=== PATIENT | female | born 1960 | race American Indian/Alaskan Native ===

== ENCOUNTER 2017-12-01 19:25 | Emergency (ER) | payer MEDICARE, MEDICAID ==
[2017-12-01 20:09] VITALS: BP 126/72
--- NOTE | 2017-12-01 20:57 | EDM.PDOC ---
ED HPI GENERAL MEDICAL PROBLEM - General Chief Complaint: General Stated Complaint: YEAST INFECTION Time Seen by Provider: 12/01/17 20:10 Source of Information: Reports: Patient History Limitations: Reports: No Limitations - History of Present Illness INITIAL COMMENTS - FREE TEXT/NARRATIVE: Vaginal discharge requests screening for yeast infection. Denies any fever chills, or pelvic pain. Onset: Gradual Duration: Day(s): Location: Reports: Other Severity: Mild Improves with: Reports: None Worsens with: Reports: None Associated Symptoms: Reports: No Other Symptoms denies pain Pain Score (Numeric/FACES): 0 - Related Data Allergies Allergy/AdvReac Type Severity Reaction Status Date / Time acyclovir [From Zovirax] Allergy Hives Verified 12/21/15 22:22 acyclovir sodium Allergy Hives Verified 12/21/15 22:22 [From Zovirax] amoxicillin [Amoxicillin] Allergy Hives Verified 12/21/15 22:22 Home Meds: Home Meds Pregabalin [Lyrica] 300 mg PO TID 09/04/13 [History] metFORMIN [Glucophage] 500 mg PO DAILY 09/04/13 [History] traMADol [Ultram] 50 mg PO Q6H PRN 05/16/16 [History] Past Medical History HEENT History: Reports: Impaired Vision Other HEENT History: tooth extractions, broken teeth Cardiovascular History: Reports: Hypertension Respiratory History: Reports: COPD, Pneumonia, Recurrent 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: Musculoskeletal History: Reports: Fibromyalgia, Osteoarthritis, RA Neurological History: Reports: Migraines Psychiatric History: Reports: Depression Endocrine/Metabolic History: Reports: Diabetes, Type II Hematologic History: Reports: Other (See Below) - Infectious Disease History Infectious Disease History: Reports: Chicken Pox, Shingles - Past Surgical History HEENT Surgical History: Reports: Adenoidectomy, Tonsillectomy Social & Family History - Tobacco Use Smoking Status *Q: Never Smoker Years of Tobacco use: 35 Packs/Tins Daily: 0.5 Second Hand Smoke Exposure: Yes - Caffeine Use Caffeine Use: Reports: Coffee, Soda, Tea - Alcohol Use Days Per Week of Alcohol Use: 0 - Recreational Drug Use Recreational Drug Use: No - Living Situation & Occupation Living situation: Reports: Single Occupation: Disabled ED ROS GENERAL - Review of Systems Review Of Systems: See Below Constitutional: Reports: No Symptoms (She's having the back pain) GI/Abdominal: Reports: No Symptoms : Reports: Discharge ED EXAM, GENERAL - Physical Exam Exam: See Below Exam Limited By: No Limitations General Appearance: Alert, WD/WN, No Apparent Distress Nose: Normal Inspection Throat/Mouth: Normal Inspection Head: Atraumatic, Normocephalic Neck: Normal Inspection, Supple, Non-Tender Respiratory/Chest: Lungs Clear, Normal Breath Sounds, No Accessory Muscle Use Cardiovascular: Regular Rate, Rhythm, No Murmur GI/Abdominal: Normal Bowel Sounds, Soft, Non-Tender, No Distention (Female) Exam: Deferred Psychiatric: Normal Affect, Normal Mood Skin Exam: Warm Lymphatic: No Adenopathy Course - Vital Signs Last Recorded V/S: Last Vital Signs Temp 36.2 C 12/01/17 20:06 Pulse 95 12/01/17 20:06 Resp 17 12/01/17 20:06 BP 126/72 12/01/17 20:06 Pulse Ox 98 12/01/17 20:06 - Orders/Labs/Meds Orders: Wet prep positive clue cells positive bacteria positive yeast We'll treat with Bactrim vaginosis with metronidazole 500 mg by mouth twice a day 7 days and Diflucan 150 mg by mouth 1 Advised to follow-up with primary care for recheck Departure - Departure Time of Disposition: 21:47 Disposition: Home, Self-Care 01 Condition: Good Clinical Impression: BV (bacterial vaginosis), Yeast vaginitis - Discharge Information Instructions: Vaginal Yeast Infection, Adult, Bacterial Vaginosis, [id number] Referrals: PCP,None [Primary Care Provider] - Forms: ED Department Discharge Care Plan Goals: Yeast vaginitis -Diflucan 150 mg by mouth once -Drink plenty of fluids next 3 days Return to clinic or ER if not improved her symptoms worsen Bacterial vaginosis -Start metronidazole 500 mg by mouth twice a day 7 days -Drink plenty of fluids next 3 days return to clinic or ER if not improved her symptoms worsen - Problem List & Annotations (1) Yeast infection SNOMED Code(s): 6822410 Code(s): B37.9 - CANDIDIASIS, UNSPECIFIED Status: Acute Priority: Medium Current Visit: Yes (2) Yeast vaginitis SNOMED Code(s): 77502890 Code(s): B37.3 - CANDIDIASIS OF VULVA AND VAGINA Status: Acute Priority: Medium Current Visit: Yes - Problem List Review Problem List Initiated/Reviewed/Updated: Yes - Assessment/Plan Plan: Otitis media -amoxicillin 250mg/5 mL is give 10 ML's by mouth twice a day 7 days -Ibuprofen 5 mL to 7.5 mL is every 6-8 hours as needed for pain -Results in start meds tonight -follow-up with primary care provider for recheck in 10 days Return to clinic, urgent care, ER if has increased pain, fever, chills, nausea, vomiting, rash or not improved. Excessive ear wax -Prescription written for Debrox ear drops as directed Follow-up with primary care provider for recheck 0
== END 2017-12-01 21:50 | disposition home or self-care (01) ==
LOC: JP.ED 19:25
DX: N76.0 Acute vaginitis (principal); B37.3 Candidiasis of vulva and vagina; I10 Essential (primary) hypertension; E11.9 Type 2 diabetes mellitus without complications; Z88.1 Allergy status to other antibiotic agents; Z88.8 Allergy status to other drugs, medicaments and biological substances; Z79.84 Long term (current) use of oral hypoglycemic drugs
CPT/HCPCS: 87210; 99283; 99284

== ENCOUNTER 2019-08-21 18:48 | Emergency (ER) | payer MEDICARE, MEDICAID ==
--- NOTE | 2019-08-21 21:00 | EDM.PDOC ---
ED HPI GENERAL MEDICAL PROBLEM - General Chief Complaint: Respiratory Problem Stated Complaint: POSSIBLE FLU, DIFFICULTY BREATHING Time Seen by Provider: 08/21/19 20:46 Source of Information: Reports: Patient, RN Notes Reviewed History Limitations: Reports: No Limitations - History of Present Illness INITIAL COMMENTS - FREE TEXT/NARRATIVE: 58-year-old female presents emergency department today complaint of fever and being ill for about a week, she does feel short of breath has had a cough with green sputum production she has a remote history of smoking estimate 40-pack- year history. She denies any chest pain no nausea or vomiting she admits to leg edema that she is noticed over the last couple days body aches Pain Score (Numeric/FACES): 9 - Related Data Allergies Allergy/AdvReac Type Severity Reaction Status Date / Time acyclovir [From Zovirax] Allergy Hives Verified 12/21/15 22:22 acyclovir sodium Allergy Hives Verified 12/21/15 22:22 [From Zovirax] amoxicillin [Amoxicillin] Allergy Hives Verified 12/21/15 22:22 Home Meds: Home Meds Baclofen 10 mg PO TID 08/21/19 [History] Ibuprofen 800 mg PO DAILY 08/21/19 [History] buPROPion HCl [Wellbutrin Xl] 150 mg PO DAILY 08/21/19 [History] glipiZIDE [Glipizide Xl] 5 mg PO DAILY 08/21/19 [History] Past Medical History HEENT History: Reports: Impaired Vision Other HEENT History: tooth extractions, broken teeth Cardiovascular History: Reports: High Cholesterol, Hypertension Respiratory History: Reports: COPD, Pneumonia, Recurrent Genitourinary History: Reports: 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: Musculoskeletal History: Reports: Amputation, Back Pain, Chronic, Fibromyalgia, Osteoarthritis, RA Other Musculoskeletal History: 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 Neurological History: Reports: Migraines Psychiatric History: Reports: Anxiety, Depression Endocrine/Metabolic History: Reports: Diabetes, Type II - Infectious Disease History Infectious Disease History: Reports: Chicken Pox, Shingles - Past Surgical History HEENT Surgical History: Reports: Adenoidectomy, Tonsillectomy Musculoskeletal Surgical History: Reports: Amputation Social & Family History - Tobacco Use Smoking Status *Q: Former Smoker Years of Tobacco use: 40 Packs/Tins Daily: 1 Used Tobacco, but Quit: Yes Month/Year Tobacco Last Used: 2017 - Caffeine Use Caffeine Use: Reports: Coffee Caffeine Use Comment: 1-2 cups of coffee - Recreational Drug Use Recreational Drug Use: No - Living Situation & Occupation Living situation: Reports: Single Occupation: Disabled ED ROS GENERAL - Review of Systems Review Of Systems: See Below Constitutional: Reports: Fever, Chills, Weakness HEENT: Reports: No Symptoms Respiratory: Reports: Shortness of Breath, Cough, Sputum Cardiovascular: Reports: Dyspnea on Exertion GI/Abdominal: Reports: No Symptoms : Reports: No Symptoms ED EXAM, GENERAL - Physical Exam Exam: See Below Exam Limited By: No Limitations General Appearance: Alert, Mild Distress, Other (Ill-appearing) Throat/Mouth: No Airway Compromise, Other (Dry) Head: Atraumatic, Normocephalic Neck: Normal Inspection, Supple, Non-Tender, Full Range of Motion Respiratory/Chest: Decreased Breath Sounds, Rhonchi Cardiovascular: Regular Rate, Rhythm, No Murmur GI/Abdominal: Soft, Non-Tender Extremities: Normal Inspection, Pedal Edema Course - Vital Signs Last Recorded V/S: Last Vital Signs Temp 99.4 F 08/21/19 22:47 Pulse 106 H 08/21/19 22:41 Resp 30 H 08/21/19 22:47 BP 142/78 H 08/21/19 22:47 Pulse Ox 95 08/21/19 22:47 - Orders/Labs/Meds Orders: Active Orders 24 hr Category Date Time Status EKG Documentation Completion [RC] ASDIRECTED Care 08/21/19 21:59 Active Peripheral IV Care [RC] . DIRECTED Care 08/21/19 20:56 Active CULTURE BLOOD [BC] Urgent Lab 08/21/19 20:55 Received CULTURE BLOOD [BC] Urgent Lab 08/21/19 21:05 Received CULTURE URINE [RM] Urgent Lab 08/21/19 21:29 Received PATIENT RETYPE [BBK] Stat Lab 08/21/19 21:24 Results RED BLOOD CELLS LP [BBK] Stat Lab 08/21/19 21:24 Results TYPE AND SCREEN [BBK] Stat Lab 08/21/19 21:24 Results Lactated Ringers [Ringers, Lactated] 1,000 ml Med 08/21/19 21:00 Active IV ASDIRECTED Lactated Ringers [Ringers, Lactated] 1,000 ml Med 08/21/19 22:20 Active IV BOLUS Levofloxacin/Dextrose 5%-Water [Levaquin in D5W 750 MG/ Med 08/21/19 21:00 Active 150 ML] 750 mg Premix Bag 1 bag IV Q24H Sodium Chloride 0.9% [Saline Flush] Med 08/21/19 20:53 Active 10 ml FLUSH ASDIRECTED PRN Sodium Chloride 0.9% [Saline Flush] Med 08/21/19 20:56 Active 10 ml FLUSH ASDIRECTED PRN Vancomycin 1 gm Med 08/21/19 21:57 Active Sodium Chloride 0.9% [Normal Saline] 250 ml IV ONETIME Blood Culture x2 Reflex Set [OM.PC] Urgent Oth 08/21/19 20:53 Ordered Peripheral IV Insertion Adult [OM.PC] Urgent Oth 08/21/19 20:56 Ordered Saline Lock Insert [OM.PC] Stat Oth 08/21/19 20:53 Ordered Severe Sepsis Onset Time [OM.PC] Stat Oth 08/21/19 20:53 Ordered EKG 12 Lead [EK] Stat Ther 08/21/19 21:59 Ordered Medication Orders Lactated Ringer's (Ringers, Lactated) 1,000 mls @ 500 mls/hr IV ASDIRECTED FLOR Last Admin: 08/21/19 21:07 Dose: 999 mls/hr Levofloxacin/Dextrose 750 mg/ (Premix) 150 mls @ 100 mls/hr IV Q24H [facility] Last Admin: 08/21/19 21:16 Dose: 100 mls/hr Vancomycin HCl 1 gm/ Sodium (Chloride) 250 mls @ 150 mls/hr IV ONETIME ONE Stop: 08/21/19 23:36 Lactated Ringer's (Ringers, Lactated) 1,000 mls @ 999 mls/hr IV BOLUS ONE Stop: 08/21/19 23:20 Sodium Chloride (Saline Flush) 10 ml FLUSH ASDIRECTED PRN PRN Reason: Keep Vein Open Last Admin: 08/21/19 21:31 Dose: 10 ml Sodium Chloride (Saline Flush) 10 ml FLUSH ASDIRECTED PRN PRN Reason: Keep Vein Open Last Admin: 08/21/19 21:31 Dose: 10 ml Labs: Laboratory Tests 08/21/19 08/21/19 08/21/19 Range/Units 20:53 21:00 21:00 WBC 21.1 H (4.5-11.0) K/uL RBC 2.59 L (3.30-5.50) M/uL Hgb 6.7 L* D (12.0-15.0) g/dL Hct 22.2 L (36.0-48.0) % MCV 86 (80-98) fL MCH 26 L (27-31) pg MCHC 30 L (32-36) % Plt Count 631 H (150-400) K/uL Neut % (Auto) 90 H (36-66) % Lymph % (Auto) 6 L (24-44) % Brooke % (Auto) 4 (2-6) % Eos % (Auto) 0 L (2-4) % Baso % (Auto) 0 (0-1) % Puncture Site ABG pH (7.350-7.450) ABG pCO2 (35.0-42.0) mmHg ABG pO2 (75.0-100.0) mmHg ABG HCO3 (22.0-26.0) mmol/L ABG Total CO2 (21.0-25.0) mmol/L ABG O2 Saturation (95.0-98.0) % ABG O2 Content (15.0-23.0) %vol ABG Base Excess mm/L ABG Hemoglobin (12.0-16.0) g/dL ABG Oxyhemoglobin % ABG Carboxyhemoglobin (0.0-1.6) % ABG Methemoglobin % O2 Delivery Device Oxygen Flow Rate L Sodium 132 L (140-148) mmol/L Potassium 5.3 H (3.6-5.2) mmol/L Chloride 98 L (100-108) mmol/L Carbon Dioxide 23 (21-32) mmol/L Anion Gap 16.3 H (5.0-14.0) mmol/L BUN 34 H D (7-18) mg/dL Creatinine 2.4 H D (0.6-1.0) mg/dL Est Cr Clr Drug Dosing 27.03 mL/min Estimated GFR (MDRD) 21 L (>60) Glucose 440 H* (74-106) mg/dL Lactic Acid (0.4-2.0) mmol/L Calcium 7.9 L (8.5-10.1) mg/dL Total Bilirubin 0.3 (0.2-1.0) mg/dL AST 904 H D (15-37) U/L ALT 353 H (12-78) U/L Alkaline Phosphatase 230 H D (46-116) U/L Troponin I 0.231 H* (0.000-0.056) ng/mL NT-Pro-B Natriuret Pep (5-125) pg/mL Total Protein 6.8 (6.4-8.2) g/dL Albumin 2.1 L (3.4-5.0) g/dL Globulin 4.7 H (2.3-3.5) g/dL Albumin/Globulin Ratio 0.5 L (1.2-2.2) Procalcitonin ng/mL Urine Color Yellow (YELLOW) Urine Appearance Cloudy A (CLEAR) Urine pH 7.5 (5.0-8.0) Ur Specific [place] 1.015 (1.008-1.030) Urine Protein Negative (NEGATIVE) mg/dL Urine Glucose (UA) Negative (NEGATIVE) mg/dL Urine Ketones 15 H (NEGATIVE) mg/dL Urine Occult Blood Negative (NEGATIVE) Urine Nitrite Positive H (NEGATIVE) Urine Bilirubin Negative (NEGATIVE) Urine Urobilinogen 0.2 (0.2-1.0) EU/dL Ur Leukocyte Esterase Large H (NEGATIVE) Urine RBC 0-5 (0-5) Urine WBC 20-30 H (0-5) Ur Epithelial Cells Many Amorphous Sediment Few Urine Bacteria Many Urine Mucus Not seen Blood Type Gel Antibody Screen Crossmatch 08/21/19 08/21/19 08/21/19 Range/Units 21:00 21:00 21:24 WBC (4.5-11.0) K/uL RBC (3.30-5.50) M/uL Hgb (12.0-15.0) g/dL Hct (36.0-48.0) % MCV (80-98) fL MCH (27-31) pg MCHC (32-36) % Plt Count (150-400) K/uL Neut % (Auto) (36-66) % Lymph % (Auto) (24-44) % Brooke % (Auto) (2-6) % Eos % (Auto) (2-4) % Baso % (Auto) (0-1) % Puncture Site ABG pH (7.350-7.450) ABG pCO2 (35.0-42.0) mmHg ABG pO2 (75.0-100.0) mmHg ABG HCO3 (22.0-26.0) mmol/L ABG Total CO2 (21.0-25.0) mmol/L ABG O2 Saturation (95.0-98.0) % ABG O2 Content (15.0-23.0) %vol ABG Base Excess mm/L ABG Hemoglobin (12.0-16.0) g/dL ABG Oxyhemoglobin % ABG Carboxyhemoglobin (0.0-1.6) % ABG Methemoglobin % O2 Delivery Device Oxygen Flow Rate L Sodium (140-148) mmol/L Potassium (3.6-5.2) mmol/L Chloride (100-108) mmol/L Carbon Dioxide (21-32) mmol/L Anion Gap (5.0-14.0) mmol/L BUN (7-18) mg/dL Creatinine (0.6-1.0) mg/dL Est Cr Clr Drug Dosing mL/min Estimated GFR (MDRD) (>60) Glucose (74-106) mg/dL Lactic Acid 2.7 H (0.4-2.0) mmol/L Calcium (8.5-10.1) mg/dL Total Bilirubin (0.2-1.0) mg/dL AST (15-37) U/L ALT (12-78) U/L Alkaline Phosphatase (46-116) U/L Troponin I (0.000-0.056) ng/mL NT-Pro-B Natriuret Pep 54163 H (5-125) pg/mL Total Protein (6.4-8.2) g/dL Albumin (3.4-5.0) g/dL Globulin (2.3-3.5) g/dL Albumin/Globulin Ratio (1.2-2.2) Procalcitonin ng/mL Urine Color (YELLOW) Urine Appearance (CLEAR) Urine pH (5.0-8.0) Ur Specific [place] (1.008-1.030) Urine Protein (NEGATIVE) mg/dL Urine Glucose (UA) (NEGATIVE) mg/dL Urine Ketones (NEGATIVE) mg/dL Urine Occult Blood (NEGATIVE) Urine Nitrite (NEGATIVE) Urine Bilirubin (NEGATIVE) Urine Urobilinogen (0.2-1.0) EU/dL Ur Leukocyte Esterase (NEGATIVE) Urine RBC (0-5) Urine WBC (0-5) Ur Epithelial Cells Amorphous Sediment Urine Bacteria Urine Mucus Blood Type O POSITIVE Gel Antibody Screen Negative Crossmatch See Detail 08/21/19 08/21/19 Range/Units 21:41 22:40 WBC (4.5-11.0) K/uL RBC (3.30-5.50) M/uL Hgb (12.0-15.0) g/dL Hct (36.0-48.0) % MCV (80-98) fL MCH (27-31) pg MCHC (32-36) % Plt Count (150-400) K/uL Neut % (Auto) (36-66) % Lymph % (Auto) (24-44) % Brooke % (Auto) (2-6) % Eos % (Auto) (2-4) % Baso % (Auto) (0-1) % Puncture Site R brachial ABG pH 7.386 (7.350-7.450) ABG pCO2 38.7 (35.0-42.0) mmHg ABG pO2 56.4 L (75.0-100.0) mmHg ABG HCO3 22.7 (22.0-26.0) mmol/L ABG Total CO2 22.2 (21.0-25.0) mmol/L ABG O2 Saturation 85.9 L (95.0-98.0) % ABG O2 Content 7.5 L (15.0-23.0) %vol ABG Base Excess -1.6 mm/L ABG Hemoglobin 6.3 L (12.0-16.0) g/dL ABG Oxyhemoglobin 83.6 % ABG Carboxyhemoglobin 1.5 (0.0-1.6) % ABG Methemoglobin 1.2 % O2 Delivery Device Nasal cannula Oxygen Flow Rate 2 L Sodium (140-148) mmol/L Potassium (3.6-5.2) mmol/L Chloride (100-108) mmol/L Carbon Dioxide (21-32) mmol/L Anion Gap (5.0-14.0) mmol/L BUN (7-18) mg/dL Creatinine (0.6-1.0) mg/dL Est Cr Clr Drug Dosing mL/min Estimated GFR (MDRD) (>60) Glucose (74-106) mg/dL Lactic Acid (0.4-2.0) mmol/L Calcium (8.5-10.1) mg/dL Total Bilirubin (0.2-1.0) mg/dL AST (15-37) U/L ALT (12-78) U/L Alkaline Phosphatase (46-116) U/L Troponin I (0.000-0.056) ng/mL NT-Pro-B Natriuret Pep (5-125) pg/mL Total Protein (6.4-8.2) g/dL Albumin (3.4-5.0) g/dL Globulin (2.3-3.5) g/dL Albumin/Globulin Ratio (1.2-2.2) Procalcitonin 1.83 ng/mL Urine Color (YELLOW) Urine Appearance (CLEAR) Urine pH (5.0-8.0) Ur Specific [place] (1.008-1.030) Urine Protein (NEGATIVE) mg/dL Urine Glucose (UA) (NEGATIVE) mg/dL Urine Ketones (NEGATIVE) mg/dL Urine Occult Blood (NEGATIVE) Urine Nitrite (NEGATIVE) Urine Bilirubin (NEGATIVE) Urine Urobilinogen (0.2-1.0) EU/dL Ur Leukocyte Esterase (NEGATIVE) Urine RBC (0-5) Urine WBC (0-5) Ur Epithelial Cells Amorphous Sediment Urine Bacteria Urine Mucus Blood Type Gel Antibody Screen Crossmatch Meds: Medications Generic Name Dose Route Start Last Admin Trade Name Freq PRN Reason Stop Dose Admin Lactated Ringer's 1,000 mls @ 500 mls/hr 08/21/19 21:00 08/21/19 21:07 Ringers, Lactated IV 999 mls/hr ASDIRECTED FLOR Administration Levofloxacin/Dextrose 750 mg/ 150 mls @ 100 mls/hr 08/21/19 21:00 08/21/19 21 :16 Premix IV 100 mls/hr Q24H FLOR Administration Vancomycin HCl 1 gm/ Sodium 250 mls @ 150 mls/hr 08/21/19 21:57 Chloride IV 08/21/19 23:36 ONETIME ONE Lactated Ringer's 1,000 mls @ 999 mls/hr 08/21/19 22:20 Ringers, Lactated IV 08/21/19 23:20 BOLUS ONE Sodium Chloride 10 ml 08/21/19 20:53 08/21/19 21:31 Saline Flush FLUSH 10 ml ASDIRECTED PRN Administration Keep Vein Open Sodium Chloride 10 ml 08/21/19 20:56 08/21/19 21:31 Saline Flush FLUSH 10 ml ASDIRECTED PRN Administration Keep Vein Open Discontinued Medications Generic Name Dose Route Start Last Admin Trade Name Freq PRN Reason Stop Dose Admin Acetaminophen 650 mg 08/21/19 20:58 08/21/19 21:08 Tylenol PO 08/21/19 20:59 650 mg NOW ONE Administration Benzonatate 200 mg 08/21/19 20:59 08/21/19 21:08 Tessalon Perles PO 08/21/19 21:00 200 mg ONETIME ONE Administration Meropenem 1 gm/ Sodium 50 mls @ 100 mls/hr 08/21/19 21:57 08/21/19 22:59 Chloride IV 08/21/19 22:26 100 mls/hr ONETIME ONE Administration Lorazepam 1 mg 08/21/19 21:41 08/21/19 22:15 Ativan IVPUSH 08/21/19 21:42 1 mg ONETIME ONE Administration Departure - Departure Time of Disposition: 23:03 Disposition: DC/Tfer to Acute Hospital 02 Condition: Poor Clinical Impression: Sepsis Qualifiers: Sepsis type: sepsis due to unspecified organism Sepsis acute organ dysfunction status: with acute organ dysfunction Severe sepsis acute organ dysfunction type : unspecified Severe sepsis shock status: with septic shock Qualified Code(s): A41.9 - Sepsis, unspecified organism; R65.21 - Severe sepsis with septic shock - Discharge Information Referrals: PCP,None [Primary Care Provider] - Forms: ED Department Discharge Critical Care Note - Critical Care Note Total Time (mins): 30 Sepsis Event Note - Evaluation Sepsis Screening Result: Possible Severe Sepsis Risk - Focused Exam Vital Signs: Vital Signs Temp Temp Pulse Resp BP Pulse Ox 08/21/19 22:47 99.4 F 30 H 142/78 H 95 08/21/19 22:41 99.7 F 106 H 18 125/72 08/21/19 22:35 99.5 F 106 H 32 H 129/78 08/21/19 22:22 99.6 F 08/21/19 21:08 101.1 F H 08/21/19 20:44 101.1 F H 116 H 20 91/50 L 85 L Date Exam was Performed: 08/21/19 Time Exam was Performed: 23:00 - My Orders Last 24 Hours: My Active Orders 08/21/19 20:53 Sodium Chloride 0.9% [Saline Flush] 10 ml FLUSH ASDIRECTED PRN Blood Culture x2 Reflex Set [OM.PC] Urgent Saline Lock Insert [OM.PC] Stat Severe Sepsis Onset Time [OM.PC] Stat 08/21/19 20:55 CULTURE BLOOD [BC] Urgent 08/21/19 20:56 Peripheral IV Care [RC] . DIRECTED Sodium Chloride 0.9% [Saline Flush] 10 ml FLUSH ASDIRECTED PRN Peripheral IV Insertion Adult [OM.PC] Urgent 08/21/19 21:00 Lactated Ringers [Ringers, Lactated] 1,000 ml IV ASDIRECTED Levofloxacin/Dextrose 5%-Water [Levaquin in D5W 750 MG/150 ML] 750 mg Premix Bag 1 bag IV Q24H 08/21/19 21:05 CULTURE BLOOD [BC] Urgent 08/21/19 21:24 PATIENT RETYPE [BBK] Stat RED BLOOD CELLS LP [BBK] Stat TYPE AND SCREEN [BBK] Stat 08/21/19 21:29 CULTURE URINE [RM] Urgent 08/21/19 21:57 Vancomycin 1 gm Sodium Chloride 0.9% [Normal Saline] 250 ml IV ONETIME 08/21/19 21:59 EKG Documentation Completion [RC] ASDIRECTED EKG 12 Lead [EK] Stat 08/21/19 22:20 Lactated Ringers [Ringers, Lactated] 1,000 ml IV BOLUS - Assessment/Plan Last 24 Hours: My Active Orders 08/21/19 20:53 Sodium Chloride 0.9% [Saline Flush] 10 ml FLUSH ASDIRECTED PRN Blood Culture x2 Reflex Set [OM.PC] Urgent Saline Lock Insert [OM.PC] Stat Severe Sepsis Onset Time [OM.PC] Stat 08/21/19 20:55 CULTURE BLOOD [BC] Urgent 08/21/19 20:56 Peripheral IV Care [RC] . DIRECTED Sodium Chloride 0.9% [Saline Flush] 10 ml FLUSH ASDIRECTED PRN Peripheral IV Insertion Adult [OM.PC] Urgent 08/21/19 21:00 Lactated Ringers [Ringers, Lactated] 1,000 ml IV ASDIRECTED Levofloxacin/Dextrose 5%-Water [Levaquin in D5W 750 MG/150 ML] 750 mg Premix Bag 1 bag IV Q24H 08/21/19 21:05 CULTURE BLOOD [BC] Urgent 08/21/19 21:24 PATIENT RETYPE [BBK] Stat RED BLOOD CELLS LP [BBK] Stat TYPE AND SCREEN [BBK] Stat 08/21/19 21:29 CULTURE URINE [RM] Urgent 08/21/19 21:57 Vancomycin 1 gm Sodium Chloride 0.9% [Normal Saline] 250 ml IV ONETIME 08/21/19 21:59 EKG Documentation Completion [RC] ASDIRECTED EKG 12 Lead [EK] Stat 08/21/19 22:20 Lactated Ringers [Ringers, Lactated] 1,000 ml IV BOLUS Plan: Assessment Acuity = acute Site and laterality = sepsis Etiology = probable pulmonary source however urinary source could be involved Manifestations = hypoxic, hypotensive, tachycardic, fever Location of injury = Home Lab values = WBC elevated 21.1 consistent with leukocytosis hemoglobin low at 6.7 consistent with normochromic anemia potassium elevated 5.3 consistent hyperkalemia creatinine elevated 2.4 consistent with acute renal failure stage G4 glucose elevated at 440 consistent with hyperglycemia lactic acid elevated at 2.7 consistent lactic acidosis AST elevated 904 ALT elevated 353 consistent elevated liver enzymes troponin elevated 0.31 probably related to elevated creatinine and elevated BNP BNP markedly elevated 13,000 595 consistent with fluid overload type pattern albumin low at 2.1 consistent with hypoalbuminemia urinalysis positive for nitrates and 20-30 WBCs consistent with pyuria cultures pending, EKG demonstrates left axis deviation with a tachycardia no ST elevations or depressions chest x-ray shows left lower lobe and left perihilar infiltrates Plan Call discussed case Dr. Ya hospitalist on-call at [facility] at 2245 he kindly septa the patient in transport will be transported via EMS ground , could not transport to [place] which is the closest facility due to weather current roads are closed. Thus far she has received 2 L of lactated Ringer's, 750 mg levofloxacin 1 g vancomycin 1 g meropenem blood cultures are pending 650 mg Tylenol Critical care time 30 minutes This note was dictated using edulio voice recognition software please call with any questions on syntax or grammar.
[2019-08-21] MEDS: Lactated Ringers 1,000 ML IV SCH (21:07)
[2019-08-21] MEDS: Benzonatate 100 MG Cap PO ONE (21:08)
[2019-08-21] MEDS: Acetaminophen 325 MG Tab PO ONE (21:08)
[2019-08-21] MEDS: Levofloxacin/Dextrose 5%-Water 750 MG in Premix Bag 1 BAG IV SCH (21:16)
[2019-08-21] MEDS: Sodium Chloride 0.9% 10 ML Syringe FLUSH PRN ×2 (21:31)
--- NOTE | 2019-08-21 21:39 | CRLCR ---
Indication: SOB Technique: Chest 1 view Comparison: None Findings/Impression: Cardiovascular and mediastinum: Mild cardiomegaly. Lungs and pleural space: Left basilar and small left perihilar opacities consistent with infiltrates. Atelectasis in the right mid lung along the minor fissure with possible small regional pleural fluid. Partial obscuration of the right costophrenic angle which could represent a small pleural effusion, with an apparent regional 8 mm nodular opacity. Recommend short-term follow-up. If this persists, correlate with CT. Bones and soft tissues: No significant findings. Dictated by Rajeev West MD @ 08/21/2019 9:37:50 PM Dictated by: Rajeev West MD @ 08/21/2019 21:38:20 (Electronically Signed)
[2019-08-21] MEDS: LORazepam 2 MG/ML SDV IVPUSH ONE (22:15)
[2019-08-21] MEDS: Lactated Ringers 1,000 ML IV ONE (22:45)
[2019-08-21 23:49] VITALS: BP 134/74; PULSE 104
== END 2019-08-22 00:37 ==
LOC: JP.ED 18:48
DX: A41.9 Sepsis, unspecified organism (principal); R65.21 Severe sepsis with septic shock; I10 Essential (primary) hypertension; E11.21 Type 2 diabetes mellitus with diabetic nephropathy; F41.9 Anxiety disorder, unspecified; F32.9 Major depressive disorder, single episode, unspecified; E78.00 Pure hypercholesterolemia, unspecified; J44.9 Chronic obstructive pulmonary disease, unspecified; M06.9 Rheumatoid arthritis, unspecified; Z87.891 Personal history of nicotine dependence; Z88.8 Allergy status to other drugs, medicaments and biological substances; Z88.1 Allergy status to other antibiotic agents; Z79.899 Other long term (current) drug therapy; Z79.84 Long term (current) use of oral hypoglycemic drugs
CPT/HCPCS: 36415; 36430; 36600; 71045; 80053; 81001; 82803; 83605; 83880; 84145; 84484; 85025; 86850; 86900; 86901; 86920; 86922; 87040; 87086; 87088; 87186; 87804; 87804-59; 93005; 93010; 96365; 96366; 96367; 96375; 99285-25; 99291; A9270-GY; J1956; J2060; J2185; J3370; J7050; J7120; P9016

== ENCOUNTER 2019-09-25 00:31 | Observation (INO) | payer MEDICARE, MEDICAID ==
--- NOTE | 2019-09-25 01:03 | EDM.PDOC ---
ED HPI GENERAL MEDICAL PROBLEM - General Chief Complaint: Cardiovascular Problem Stated Complaint: SOB,HIVES ON LEGS AND CHEST, SOME PAIN Time Seen by Provider: 09/25/19 01:35 Source of Information: Reports: Patient History Limitations: Reports: No Limitations - History of Present Illness INITIAL COMMENTS - FREE TEXT/NARRATIVE: pt was recently hospitalized here and then she was transfered to [facility]. She was found not to have a good pump and she was told her heart was only working at 10 % She has gained 15 lbs in the past few days. She notes marked swelling in her legs. She has been quite sob. Onset: Gradual, Other (pt has definitely been more sob today. ) Duration: Hour(s): Location: Reports: Chest, Lower Extremity, Left, Lower Extremity, Right, Generalized Associated Symptoms: Reports: Shortness of Breath, Weakness Lower Leg Pain Score (Numeric/FACES): 8 - Related Data Allergies Allergy/AdvReac Type Severity Reaction Status Date / Time acyclovir [From Zovirax] Allergy Hives Verified 09/25/19 00:50 acyclovir sodium Allergy Hives Verified 09/25/19 00:50 [From Zovirax] amoxicillin [Amoxicillin] Allergy Hives Verified 09/25/19 00:50 Home Meds: Home Meds Baclofen 10 mg PO TID 08/21/19 [History] Ibuprofen 800 mg PO DAILY PRN 08/21/19 [History] buPROPion HCl [Wellbutrin Xl] 150 mg PO DAILY 08/21/19 [History] glipiZIDE [Glipizide Xl] 5 mg PO DAILY 08/21/19 [History] Albuterol Sulfate [Proair Respiclick] 2 puff IH QID 09/25/19 [History] Albuterol [Proventil Neb Soln] 2.5 mg .XX QID 09/25/19 [History] Albuterol/Ipratropium [DuoNeb 3.0-0.5 MG/3 ML] 3 ml .XX QID 09/25/19 [History] DULoxetine HCl [Cymbalta] 30 mg PO DAILY 09/25/19 [History] Ferrous Gluconate 1 tab PO DAILY 09/25/19 [History] Furosemide 1 tab PO DAILY 09/25/19 [History] Insulin Aspart [NovoLOG] 0 - 15 units SUBCUT TID 09/25/19 [History] Insulin Detemir [Levemir Flextouch] 10 units SUBCUT DAILY 09/25/19 [History] Nortriptyline 20 mg PO BEDTIME 09/25/19 [History] Pantoprazole Sodium [Protonix] 40 mg PO BID 09/25/19 [History] atorvaSTATin [Lipitor] 40 mg PO DAILY 09/25/19 [History] carvediloL [Carvedilol] 6.25 mg PO BID 09/25/19 [History] lisinopriL [Lisinopril] 5 mg PO DAILY 09/25/19 [History] Past Medical History HEENT History: Reports: Impaired Vision Other HEENT History: tooth extractions, broken teeth Cardiovascular History: Reports: High Cholesterol, Hypertension Respiratory History: Reports: COPD, Pneumonia, Recurrent Genitourinary History: Reports: 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: Musculoskeletal History: Reports: Amputation, Back Pain, Chronic, Fibromyalgia, Osteoarthritis, RA Other Musculoskeletal History: 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 Neurological History: Reports: Migraines Psychiatric History: Reports: Anxiety, Depression Endocrine/Metabolic History: Reports: Diabetes, Type II Hematologic History: Reports: Other (See Below) - Infectious Disease History Infectious Disease History: Reports: Chicken Pox, Shingles - Past Surgical History HEENT Surgical History: Reports: Adenoidectomy, Tonsillectomy Musculoskeletal Surgical History: Reports: Amputation Social & Family History - Tobacco Use Smoking Status *Q: Former Smoker Used Tobacco, but Quit: Yes Month/Year Tobacco Last Used: 2017 - Caffeine Use Caffeine Use: Reports: Coffee, Soda, Tea Caffeine Use Comment: 1-2 cups of coffee - Recreational Drug Use Recreational Drug Use: No - Living Situation & Occupation Living situation: Reports: Single Occupation: Disabled ED ROS GENERAL - Review of Systems Review Of Systems: See Below Constitutional: Reports: Decreased Appetite HEENT: Reports: No Symptoms Respiratory: Reports: Shortness of Breath, Other (marked increase in the ankle swelling. ) Cardiovascular: Reports: Edema, PND Endocrine: Reports: No Symptoms GI/Abdominal: Reports: No Symptoms : Reports: No Symptoms Musculoskeletal: Reports: No Symptoms Skin: Reports: No Symptoms Neurological: Reports: No Symptoms Psychiatric: Reports: No Symptoms ED EXAM, GENERAL - Physical Exam Exam: See Below Free Text/Narrative:: pt arrived with increasing sob and ankle swelling. Exam Limited By: No Limitations General Appearance: Alert, Anxious, Moderate Distress Ears: Normal TMs Nose: Normal Inspection Throat/Mouth: Normal Inspection Head: Atraumatic Neck: Normal Inspection Respiratory/Chest: Decreased Breath Sounds, Rales Cardiovascular: Regular Rate, Rhythm GI/Abdominal: Soft, Non-Tender (Female) Exam: Deferred Rectal (Female) Exam: Deferred Back Exam: Normal Inspection Extremities: Pedal Edema, Other (pt has plus 3 pitting edema her wt is up 15 lbs. ) Neurological: Alert, Oriented, Normal Cognition Psychiatric: Normal Affect Course - Vital Signs Last Recorded V/S: Last Vital Signs Temp 36.0 C 09/25/19 00:52 Pulse 106 H 09/25/19 00:52 Resp 19 09/25/19 00:52 BP 118/64 09/25/19 00:52 Pulse Ox 92 L 09/25/19 00:52 - Orders/Labs/Meds Orders: Active Orders 24 hr Category Date Time Status EKG Documentation Completion [RC] ASDIRECTED Care 09/25/19 01:28 Active TROPONIN I [CHEM] Stat Lab 09/25/19 01:28 Ordered UA W/MICROSCOPIC [URIN] Urgent Lab 09/25/19 01:28 Ordered Sodium Chloride 0.9% [Saline Flush] Med 09/25/19 01:51 Active 10 ml FLUSH ASDIRECTED PRN Saline Lock Insert [OM.PC] Routine Oth 09/25/19 01:51 Ordered EKG 12 Lead [EK] Routine Ther 09/25/19 01:28 Ordered Medication Orders Sodium Chloride (Saline Flush) 10 ml FLUSH ASDIRECTED PRN PRN Reason: Keep Vein Open Last Admin: 09/25/19 02:17 Dose: 10 ml Labs: Laboratory Tests 09/25/19 09/25/19 Range/Units 01:35 01:35 WBC 9.0 (4.5-11.0) K/uL RBC 3.45 (3.30-5.50) M/uL Hgb 8.4 L (12.0-15.0) g/dL Hct 28.9 L (36.0-48.0) % MCV 84 (80-98) fL MCH 24 L (27-31) pg MCHC 29 L (32-36) % Plt Count 390 (150-400) K/uL Neut % (Auto) 78 H (36-66) % Lymph % (Auto) 13 L (24-44) % [place] % (Auto) 6 (2-6) % Eos % (Auto) 3 (2-4) % Baso % (Auto) 0 (0-1) % Sodium 142 (140-148) mmol/L Potassium 4.5 (3.6-5.2) mmol/L Chloride 105 (100-108) mmol/L Carbon Dioxide 27 (21-32) mmol/L Anion Gap 14.5 H (5.0-14.0) mmol/L BUN 32 H (7-18) mg/dL Creatinine 2.1 H (0.6-1.0) mg/dL Est Cr Clr Drug Dosing 30.89 mL/min Estimated GFR (MDRD) 24 L (>60) Glucose 188 H (74-106) mg/dL Calcium 7.9 L (8.5-10.1) mg/dL Total Bilirubin 0.3 (0.2-1.0) mg/dL AST 16 D (15-37) U/L ALT 16 D (12-78) U/L Alkaline Phosphatase 79 (46-116) U/L NT-Pro-B Natriuret Pep 21270 H (5-125) pg/mL Total Protein 6.7 (6.4-8.2) g/dL Albumin 2.5 L (3.4-5.0) g/dL Globulin 4.2 H (2.3-3.5) g/dL Albumin/Globulin Ratio 0.6 L (1.2-2.2) Meds: Medications Generic Name Dose Route Start Last Admin Trade Name Freq PRN Reason Stop Dose Admin Sodium Chloride 10 ml 09/25/19 01:51 09/25/19 02:17 Saline Flush FLUSH 10 ml ASDIRECTED PRN Administration Keep Vein Open Discontinued Medications Generic Name Dose Route Start Last Admin Trade Name Freq PRN Reason Stop Dose Admin Furosemide 60 mg 09/25/19 01:52 09/25/19 02:15 Lasix IVPUSH 09/25/19 01:53 60 mg ONETIME ONE Administration Furosemide Confirm 09/25/19 02:10 09/25/19 02:17 Lasix Administered 09/25/19 02:11 Not Given Dose 40 mg .ROUTE .STK-MED ONE - Re-Assessments/Exams Free Text/Narrative Re-Assessment/Exam: 09/25/19 02:45 pt has a high bnpand chest xray reveals evidence of chf. Will admit and diurese. pt has not had chest pain 09/25/19 02:50 Departure - Departure Time of Disposition: 02:50 Disposition: Admitted As Inpatient 67 Condition: Fair Clinical Impression: CHF (congestive heart failure), Anemia Referrals: PCP,None [Primary Care Provider] - Forms: ED Department Discharge Care Plan Goals: admit to second floor --Summer Wetzel. Sepsis Event Note - Evaluation Sepsis Screening Result: No Definite Risk - Focused Exam Vital Signs: Vital Signs Temp Pulse Resp BP Pulse Ox 09/25/19 00:52 36.0 C 106 H 19 118/64 92 L Date Exam was Performed: 09/25/19 Time Exam was Performed: 02:45 - My Orders Last 24 Hours: My Active Orders 09/25/19 01:28 EKG Documentation Completion [RC] ASDIRECTED TROPONIN I [CHEM] Stat UA W/MICROSCOPIC [URIN] Urgent EKG 12 Lead [EK] Routine 09/25/19 01:51 Sodium Chloride 0.9% [Saline Flush] 10 ml FLUSH ASDIRECTED PRN Saline Lock Insert [OM.PC] Routine - Assessment/Plan Last 24 Hours: My Active Orders 09/25/19 01:28 EKG Documentation Completion [RC] ASDIRECTED TROPONIN I [CHEM] Stat UA W/MICROSCOPIC [URIN] Urgent EKG 12 Lead [EK] Routine 09/25/19 01:51 Sodium Chloride 0.9% [Saline Flush] 10 ml FLUSH ASDIRECTED PRN Saline Lock Insert [OM.PC] Routine
[2019-09-25] MEDS ORDERED: Sodium Chloride 0.9% 10 ML Syringe FLUSH PRN ×2 (01:51→04:21)
[2019-09-25] MEDS ORDERED: Furosemide 40 MG/4 ML VIAL IVPUSH ONE ×2 (01:52→15:00)
[2019-09-25] MEDS ORDERED: Furosemide 40 MG/4 ML VIAL ONE (02:10)
--- NOTE | 2019-09-25 02:22 | CRLCR ---
Indication: Shortness of breath, fluid overload Technique: Chest 1 view Comparison: August 21, 2019 Findings/Impression: Stable cardiomegaly. Perihilar opacities may reflect edema or infection. No pneumothorax or significant effusion. Lung volumes are low. No acute osseous abnormality Dictated by Carmen Vigil MD @ Sep 25 2019 2:19AM Signed by Dr. Carmen Vigil @ Sep 25 2019 2:20AM
--- NOTE | 2019-09-25 04:10 | PCM.HP.2 ---
H&P History of Present Illness - General Date of Service: 09/25/19 Admit Problem/Dx: Admission Diagnosis/Problem Admission Diagnosis/Problem CHF, Congestive heart failure Source of Information: Patient, Provider, RN History Limitations: Reports: No Limitations - History of Present Illness Initial Comments - Free Text/Narative: INITIAL COMMENTS - FREE TEXT/NARRATIVE: pt was recently hospitalized here and then she was transferred to [facility]. She was found not to have a good pump and she was told her heart was only working at 10 % She has gained 15 lbs in the past few days. She notes marked swelling in her legs. She has been quite sob. Onset: Gradual, Other (pt has definitely been more sob today. ) Duration: Hour(s): Onset of Symptoms: Reports: Gradual Duration of Symptoms: Reports: Getting Worse Location: Reports: Generalized Quality: Reports: Same as Previous Episode Severity: Severe Improves with: Reports: Rest Worsens with: Reports: Movement Context: Reports: Other (excerbation of COPD) Associated Symptoms: Reports: Shortness of Breath, Weakness Lower Leg Pain Score (Numeric/FACES): 8 - Related Data Allergies/Adverse Reactions: Allergies Allergy/AdvReac Type Severity Reaction Status Date / Time acyclovir [From Zovirax] Allergy Hives Verified 09/25/19 00:50 acyclovir sodium Allergy Hives Verified 09/25/19 00:50 [From Zovirax] amoxicillin [Amoxicillin] Allergy Hives Verified 09/25/19 00:50 Home Medications: Home Meds Baclofen 10 mg PO TID 08/21/19 [History] Ibuprofen 800 mg PO DAILY PRN 08/21/19 [History] buPROPion HCl [Wellbutrin Xl] 150 mg PO DAILY 08/21/19 [History] glipiZIDE [Glipizide Xl] 5 mg PO DAILY 08/21/19 [History] Albuterol Sulfate [Proair Respiclick] 2 puff IH QID 09/25/19 [History] Albuterol [Proventil Neb Soln] 2.5 mg .XX QID 09/25/19 [History] Albuterol/Ipratropium [DuoNeb 3.0-0.5 MG/3 ML] 3 ml .XX QID 09/25/19 [History] DULoxetine HCl [Cymbalta] 30 mg PO DAILY 09/25/19 [History] Ferrous Gluconate 1 tab PO DAILY 09/25/19 [History] Furosemide 1 tab PO DAILY 09/25/19 [History] Insulin Aspart [NovoLOG] 0 - 15 units SUBCUT TID 09/25/19 [History] Insulin Detemir [Levemir Flextouch] 10 units SUBCUT DAILY 09/25/19 [History] Nortriptyline 20 mg PO BEDTIME 09/25/19 [History] Pantoprazole Sodium [Protonix] 40 mg PO BID 09/25/19 [History] atorvaSTATin [Lipitor] 40 mg PO DAILY 09/25/19 [History] carvediloL [Carvedilol] 6.25 mg PO BID 09/25/19 [History] lisinopriL [Lisinopril] 5 mg PO DAILY 09/25/19 [History] Past Medical History HEENT History: Reports: Impaired Vision Other HEENT History: tooth extractions, broken teeth Cardiovascular History: Reports: High Cholesterol, Hypertension Respiratory History: Reports: COPD, Pneumonia, Recurrent Genitourinary History: Reports: 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: Musculoskeletal History: Reports: Amputation, Back Pain, Chronic, Fibromyalgia, Osteoarthritis, RA Other Musculoskeletal History: 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 Neurological History: Reports: Migraines Psychiatric History: Reports: Anxiety, Depression Endocrine/Metabolic History: Reports: Diabetes, Type II Hematologic History: Reports: Other (See Below) - Infectious Disease History Infectious Disease History: Reports: Chicken Pox, Shingles - Past Surgical History HEENT Surgical History: Reports: Adenoidectomy, Tonsillectomy Musculoskeletal Surgical History: Reports: Amputation Social & Family History - Tobacco Use Smoking Status *Q: Former Smoker Used Tobacco, but Quit: Yes Month/Year Tobacco Last Used: 2017 - Caffeine Use Caffeine Use: Reports: Coffee, Soda, Tea Caffeine Use Comment: 1-2 cups of coffee - Recreational Drug Use Recreational Drug Use: No - Living Situation & Occupation Living situation: Reports: Single Occupation: Disabled H&P Review of Systems - Review of Systems: Review Of Systems: See Below General: Reports: Other (shortness of breath, but reports doing better, ready to go home. Doesn't know why we are keeping her.) HEENT: Reports: No Symptoms Pulmonary: Reports: Shortness of Breath, Other (recent hospitalization for pneumonia 08-22-2019 to 08-29-2019) Cardiovascular: Reports: Dyspnea on Exertion, Edema (lower leg) Gastrointestinal: Reports: No Symptoms Genitourinary: Reports: No Symptoms Musculoskeletal: Reports: No Symptoms Skin: Reports: Wound (left posterior heel with dry ulcer, right foot with open area incision at mid foot amputation site), Other (left foot with mid foot amputation 04-09-2019-still healing) Psychiatric: Reports: No Symptoms Neurological: Reports: No Symptoms Hematologic/Lymphatic: Reports: Anemia (chronic anemia) Immunologic: Reports: No Symptoms Exam - Exam Exam: See Below - Vital Signs Vital Signs: Last Vital Signs Temp 36.0 C 09/25/19 00:52 Pulse 106 H 09/25/19 00:52 Resp 19 09/25/19 00:52 BP 118/64 09/25/19 00:52 Pulse Ox 92 L 09/25/19 00:52 Weight: 91.2 kg - Exam General: Alert, Oriented, Cooperative HEENT: PERRLA, Hearing Intact, Mucosa Moist & Universal, Nares Patent, Normal Nasal Septum, Posterior Pharynx Clear, Conjunctiva Clear, EOMI, EACs Clear, TMs Clear Neck: Supple, Trachea Midline, 2 Lungs: Clear to Auscultation, Decreased Breath Sounds Cardiovascular: Regular Rate, Regular Rhythm GI/Abdominal Exam: Normal Bowel Sounds, Soft, Non-Tender (Female) Exam: Deferred Rectal (Female) Exam: Deferred Back Exam: Normal Inspection, Full Range of Motion Extremities: Pedal Edema (2+ edema of lower legs.), Slow Capillary Refill Peripheral Pulses: 2+: Radial (L), Radial (R) Skin: Warm, Dry, Other (left foot with delayed healing of mid foot amputation right heel with dry ulcer.) Neurological: Reflexes Equal Bilateral, Strength Equal Bilateral, Normal Speech , Normal Tone Neuro Extensive - Mental Status: Alert, Oriented x3, Normal Mood/Affect, Normal Cognition Neuro Extensive - Motor, Sensory, Reflexes: Motor/Sensory Deficits Psychiatric: Alert, Normal Affect, Normal Mood - Patient Data Lab Results Last 24 hrs: Laboratory Results - last 24 hr 09/25/19 09/25/19 09/25/19 Range/Units 01:35 01:35 01:35 WBC 9.0 (4.5-11.0) K/uL RBC 3.45 (3.30-5.50) M/uL Hgb 8.4 L (12.0-15.0) g/dL Hct 28.9 L (36.0-48.0) % MCV 84 (80-98) fL MCH 24 L (27-31) pg MCHC 29 L (32-36) % Plt Count 390 (150-400) K/uL Neut % (Auto) 78 H (36-66) % Lymph % (Auto) 13 L (24-44) % [place] % (Auto) 6 (2-6) % Eos % (Auto) 3 (2-4) % Baso % (Auto) 0 (0-1) % Sodium 142 (140-148) mmol/L Potassium 4.5 (3.6-5.2) mmol/L Chloride 105 (100-108) mmol/L Carbon Dioxide 27 (21-32) mmol/L Anion Gap 14.5 H (5.0-14.0) mmol/L BUN 32 H (7-18) mg/dL Creatinine 2.1 H (0.6-1.0) mg/dL Est Cr Clr Drug Dosing 30.89 mL/min Estimated GFR (MDRD) 24 L (>60) Glucose 188 H (74-106) mg/dL Calcium 7.9 L (8.5-10.1) mg/dL Total Bilirubin 0.3 (0.2-1.0) mg/dL AST 16 D (15-37) U/L ALT 16 D (12-78) U/L Alkaline Phosphatase 79 (46-116) U/L Troponin I < 0.017 (0.000-0.056) ng/mL NT-Pro-B Natriuret Pep 49852 H (5-125) pg/mL Total Protein 6.7 (6.4-8.2) g/dL Albumin 2.5 L (3.4-5.0) g/dL Globulin 4.2 H (2.3-3.5) g/dL Albumin/Globulin Ratio 0.6 L (1.2-2.2) Result Diagrams: 09/25/19 01:35 09/25/19 01:35 Sepsis Event Note - Evaluation Sepsis Screening Result: No Definite Risk - Focused Exam Vital Signs: Vital Signs Temp Pulse Resp BP Pulse Ox 09/25/19 00:52 36.0 C 106 H 19 118/64 92 L Date Exam was Performed: 09/25/19 Time Exam was Performed: 04:05 - Problem List (1) CHF (congestive heart failure) SNOMED Code(s): 29311619 ICD Code: I50.9 - HEART FAILURE, UNSPECIFIED Status: Acute Priority: High Current Visit: Yes Qualifiers: Heart failure type: systolic Heart failure chronicity: acute on chronic Qualified Code(s): I50.23 - Acute on chronic systolic (congestive) heart failure (2) Diabetes mellitus SNOMED Code(s): 56957203 ICD Code: E11.9 - TYPE 2 DIABETES MELLITUS WITHOUT COMPLICATIONS Status: Acute Priority: Low Current Visit: Yes Qualifiers: Diabetes mellitus type: type 2 Diabetes mellitus long-term insulin use: with long-term use Diabetes mellitus complication detail: with other skin ulcer (3) Anemia SNOMED Code(s): 267011574 ICD Code: D64.9 - ANEMIA, UNSPECIFIED Status: Acute Priority: Medium Current Visit: Yes Qualifiers: Anemia type: unspecified type Qualified Code(s): D64.9 - Anemia, unspecified (4) History of amputation of left midfoot SNOMED Code(s): 80666547364122407 ICD Code: Z89.432 - ACQUIRED ABSENCE OF LEFT FOOT Status: Acute Priority : Low Current Visit: Yes Problem List Initiated/Reviewed/Updated: Yes Orders Last 24hrs: Active Orders 24 hr Category Date Time Status Patient Status Manage Transfer [TRANSFER] Routine ADT 09/25/19 03:49 Active EKG Documentation Completion [RC] ASDIRECTED Care 09/25/19 01:28 Active UA W/MICROSCOPIC [URIN] Urgent Lab 09/25/19 03:54 Ordered Sodium Chloride 0.9% [Saline Flush] Med 09/25/19 01:51 Active 10 ml FLUSH ASDIRECTED PRN Saline Lock Insert [OM.PC] Routine Oth 09/25/19 01:51 Ordered Resuscitation Status Routine Resus Stat 09/25/19 03:50 Ordered EKG 12 Lead [EK] Routine Ther 09/25/19 01:28 Ordered Medication Orders Sodium Chloride (Saline Flush) 10 ml FLUSH ASDIRECTED PRN PRN Reason: Keep Vein Open Last Admin: 09/25/19 02:17 Dose: 10 ml Assessment/Plan Comment:: ASSESSMENT AND PLAN OF CARE. Shortness of breath pt was recently hospitalized here ( 08-22-2019 to 08-29-2019) and then she was transferred to [facility]. She was found not to have a good pump and she was told her heart was only working at 10 % She has gained 15 lbs in the past few days. She notes marked swelling in her legs. She has been quite sob. Onset: Gradual, Other (pt has definitely been more sob today. ) ER work up labs, Imaging. will plan to admit to Observation status for CHF. Congestive Heart Failure with EF 10%. Ms. Sheppard was given Lasix PO and IV in ER , now feeling much better. ready to go home. Will stay for 0900 dose of Lasix -IV Lasix 60 mg at 0900 -continue cardiac medication Diabetes type 2 -continue home medications -blood glucose check before meals and at bedtime History of left mid foot amputation 04-05-2019 with delayed healing. right posterior heel ulcer -apply bandage with kerlix and non stick dressing MAINTENANCE ISSUES -DVT Prophylaxis SCD -GI prophylaxis- Protonix 40 mg po daily -Haider catheter not indicated -Nutrition Consistent carb low salt. -Nicotine- quit smoking 2 years ago. CODE STATUS FULL ADMISSION This patient will be admitted to observation status, expect no more than one night hospital stay for evaluation and management of problems outline above. DISPOSITION anticipate discharge to home after the hospital stay PRIMARY CARE PROVIDER- Codie Farmer NP, [facility] HOSPITALIST Dr. Willis
[2019-09-25] MEDS ORDERED: Albuterol 0.083% 2.5 MG/3 ML Neb Soln NEB PRN (04:21)
[2019-09-25] MEDS ORDERED: LORazepam 2 MG/ML SDV IV PRN (04:21)
[2019-09-25] MEDS ORDERED: Acetaminophen 325 MG Tab PO PRN (04:21)
[2019-09-25] MEDS ORDERED: Docusate Sodium 100 MG Cap PO PRN (04:21)
[2019-09-25] MEDS ORDERED: Ondansetron 4 MG Tab.DIS PO PRN (04:21)
[2019-09-25] MEDS: Albuterol/Ipratropium 3.0-0.5 MG/3 ML Neb Soln NEB SCH ×4 (07:50→21:15)
[2019-09-25] MEDS ORDERED: Insulin Glargine,Human Rec. Analog 100 Units/ML 3 ML Pen SUBCUT SCH (09:00)
[2019-09-25] MEDS ORDERED: Furosemide 20 MG/2 ML VIAL IVPUSH ONE (09:10)
[2019-09-25] MEDS: DULoxetine 30 MG Cap PO SCH (09:18)
[2019-09-25] MEDS: Pantoprazole 40 MG Tab.CR PO SCH ×2 (09:18→15:50)
[2019-09-25] MEDS: Carvedilol 6.25 MG Tab PO SCH ×2 (09:18→21:13)
[2019-09-25] MEDS: buPROPion 150 MG Tab.ER PO SCH (09:19)
[2019-09-25] MEDS: Baclofen 10 MG Tab PO SCH ×3 (09:19→21:15)
[2019-09-25] MEDS: glipiZIDE 5 MG Tab.ER PO SCH (09:19)
[2019-09-25] MEDS: Ferrous Sulfate 325 MG Tab PO SCH (09:19)
[2019-09-25] MEDS: Lisinopril 5 MG Tab PO SCH (09:20)
[2019-09-25] MEDS: Insulin Glargine,Human Rec. Analog 100 Units/ML 3 ML Pen SUBCUT SCH (09:22)
[2019-09-25] MEDS ORDERED: Nortriptyline 10 MG Cap PO SCH (21:00)
[2019-09-26] MEDS: Albuterol/Ipratropium 3.0-0.5 MG/3 ML Neb Soln NEB SCH ×2 (07:18→11:02)
[2019-09-26] MEDS: buPROPion 150 MG Tab.ER PO SCH (08:24)
[2019-09-26] MEDS: Pantoprazole 40 MG Tab.CR PO SCH (08:24)
[2019-09-26] MEDS: Ferrous Sulfate 325 MG Tab PO SCH (08:24)
[2019-09-26] MEDS: Baclofen 10 MG Tab PO SCH (08:24)
[2019-09-26] MEDS: DULoxetine 30 MG Cap PO SCH (08:24)
[2019-09-26] MEDS: Lisinopril 5 MG Tab PO SCH (08:24)
[2019-09-26] MEDS: Carvedilol 6.25 MG Tab PO SCH (08:25)
[2019-09-26] MEDS: glipiZIDE 5 MG Tab.ER PO SCH (08:25)
[2019-09-26] MEDS: Insulin Glargine,Human Rec. Analog 100 Units/ML 3 ML Pen SUBCUT SCH (08:30)
[2019-09-26] MEDS ORDERED: Furosemide 40 MG/4 ML VIAL IVPUSH ONE (09:00)
[2019-09-26 11:01] VITALS: BP 102/58
[2019-09-26 11:03] VITALS: PULSE 95
--- NOTE | 2019-09-26 13:46 | PCM.DCSUM1 ---
Discharge Summary - Hospital Course Brief History: 58-year-old female with history of insulin-dependent diabetes mellitus, congestive heart failure with a severely reduced left ventricular ejection fraction and stage III kidney disease who presented with progressive shortness of breath and a 15 pound weight gain. She was admitted for management of congestive heart failure exacerbation with hypoxia. Diagnosis: Stroke: No - Discharge Data Discharge Date: 09/26/19 Discharge Disposition: Home, W Home Health Agency 06 Condition: Fair - Referral to Home Health Date of Face to Face Encounter: 09/26/19 Reason for Homebound Status: dyspnea with minimal exertion, on home O2 Primary Care Physician: PCP None Skilled Need: Nursing to monitor CHF with severe reduction in EF - Discharge Diagnosis/Problem(s) (1) CHF (congestive heart failure) SNOMED Code(s): 91968272 ICD Code: I50.9 - HEART FAILURE, UNSPECIFIED Status: Acute Priority: High Current Visit: Yes Qualifiers: Heart failure type: systolic Heart failure chronicity: acute on chronic Qualified Code(s): I50.23 - Acute on chronic systolic (congestive) heart failure (2) Acute respiratory failure with hypoxia SNOMED Code(s): 41717270, 261767191 ICD Code: J96.01 - ACUTE RESPIRATORY FAILURE WITH HYPOXIA Status: Acute Current Visit: Yes (3) Anemia SNOMED Code(s): 188326364 ICD Code: D64.9 - ANEMIA, UNSPECIFIED Status: Acute Priority: Medium Current Visit: Yes Qualifiers: Anemia type: unspecified type Qualified Code(s): D64.9 - Anemia, unspecified (4) Diabetes mellitus SNOMED Code(s): 02850740 ICD Code: E11.9 - TYPE 2 DIABETES MELLITUS WITHOUT COMPLICATIONS Status: Chronic Priority: Low Current Visit: Yes Qualifiers: Diabetes mellitus type: type 2 Diabetes mellitus continuous churn buttermaker insulin use: with continuous churn buttermaker use Diabetes mellitus complication detail: with other circulatory complications - Patient Summary/Data Hospital Course: Jimena presented to the emergency room with progressive shortness of breath and lower extremity swelling. She noted a 15 pound weight gain over a few days. This occurred despite increased doses of Lasix at home. Work-up in the emergency room was suggestive of congestive heart failure with pulmonary edema and pulmonary vascular congestion noted on chest x-ray. She received furosemide in the emergency room. She was hypoxic and required 3 L of supplemental oxygen. Kidney function had decreased significantly from her baseline. Following admission to the hospital we had an excellent response to diuresis. She received 1 dose in the emergency room at the time of admission as well as 2 doses the next day and 1 dose on the morning of discharge. Her volume status appears appropriate at this time with no significant JVD remaining. Her lower extremity edema has improved significantly. Kidney function has improved with the diuresis and is nearing baseline. There is no evidence for infection at this time. She has not had any fevers. Her diabetes has been well controlled. Despite the diuresis and normalization of her volume status the patient continues to be hypoxic. She currently requires 3 L of supplemental oxygen. She will require supplemental oxygen after the hospital discharge. She has been maintaining adequate oxygen saturations with 3 L/min. Without the oxygen she has had significant risk of morbidity and mortality from her severe systolic congestive heart failure complicated by hypoxic respiratory failure. I did increase her furosemide to 40 mg twice daily. She has follow- up scheduled in 3 days time. She was interested in continuing her home health care and this will be continued after hospital discharge. - Patient Instructions Diet: Low Sodium, Diabetic Diet Fluid Restriction: 2000 mL Activity: As Tolerated Showering/Bathing: May Shower Notify Provider of: Fever, Increased Pain, Nausea and/or Vomiting Other/Special Instructions: 1. Increase your furosemide to 40 mg twice daily ( once in the morning and once in the mid afternoon). 2. Continue your other home medications as prescribed. 3. Weigh yourself daily and alert your provider if you gain more than 2 pounds in one day or more than four pounds over a few days. 4. I have placed a referral to home health services to help ease your transition home. 5. Use the home oxygen 24 hours per day at 3 Liters/ minute - Discharge Plan *PRESCRIPTION DRUG MONITORING PROGRAM REVIEWED*: Not Applicable *COPY OF PRESCRIPTION DRUG MONITORING REPORT IN PATIENT AGUSTO: Not Applicable Prescriptions/Med Rec: Furosemide 1 tab PO BID #60 tablet Home Medications: Home Meds Baclofen 10 mg PO TID 08/21/19 [History] Ibuprofen 800 mg PO DAILY PRN 08/21/19 [History] buPROPion HCl [Wellbutrin Xl] 150 mg PO DAILY 08/21/19 [History] glipiZIDE [Glipizide Xl] 5 mg PO DAILY 12/29/19 [History] Albuterol Sulfate [Proair Respiclick] 2 puff IH QID 09/25/19 [History] Albuterol [Proventil Neb Soln] 2.5 mg .XX QID 09/25/19 [History] Albuterol/Ipratropium [DuoNeb 3.0-0.5 MG/3 ML] 3 ml .XX QID 09/25/19 [History] DULoxetine HCl [Cymbalta] 30 mg PO DAILY 09/25/19 [History] Ferrous Gluconate 1 tab PO DAILY 09/25/19 [History] Insulin Aspart [NovoLOG] 0 - 15 units SUBCUT TID 09/25/19 [History] Insulin Detemir [Levemir Flextouch] 10 units SUBCUT DAILY 09/25/19 [History] Nortriptyline 20 mg PO BEDTIME 09/25/19 [History] Pantoprazole Sodium [Protonix] 40 mg PO BID 09/25/19 [History] atorvaSTATin [Lipitor] 40 mg PO DAILY 09/25/19 [History] carvediloL [Carvedilol] 6.25 mg PO BID 09/25/19 [History] lisinopriL [Lisinopril] 5 mg PO DAILY 09/25/19 [History] Furosemide 1 tab PO BID #60 tablet 09/26/19 [Rx] Oxygen Therapy Mode: Nasal Cannula (3) Oxygen Flow Rate (L/min): 3 Patient Handouts: Heart Failure Action Plan, Heart Failure Exacerbation Referrals: Codie Farmer NP [Ordering Only Provider] - 09/28/19 10:00 am (follow up as scheduled Appointment at [facility]) - Discharge Summary/Plan Comment DC Time >30 min.: Yes (35-setting up home care) - Patient Data Vitals - Most Recent: Last Vital Signs Temp 36.9 C 09/26/19 10:56 Pulse 95 09/26/19 11:03 Resp 18 09/26/19 10:56 BP 102/58 L 09/26/19 10:56 Pulse Ox 85 L 09/26/19 11:03 Weight - Most Recent: 85.638 kg I&O - Last 24 hours: Intake & Output 09/25/19 09/26/19 09/26/19 22:59 06:59 14:59 Intake Total 595 480 Output Total 800 600 500 Balance -205 -600 -20 Lab Results - Last 24 hrs: Laboratory Results - last 24 hr 09/26/19 09/26/19 Range/Units 05:53 05:53 WBC 8.2 (4.5-11.0) K/uL RBC 3.60 (3.30-5.50) M/uL Hgb 8.7 L (12.0-15.0) g/dL Hct 30.2 L (36.0-48.0) % MCV 84 (80-98) fL MCH 24 L (27-31) pg MCHC 29 L (32-36) % Plt Count 448 H (150-400) K/uL Sodium 146 (140-148) mmol/L Potassium 4.1 (3.6-5.2) mmol/L Chloride 107 (100-108) mmol/L Carbon Dioxide 32 (21-32) mmol/L Anion Gap 7.1 (5.0-14.0) mmol/L BUN 26 H (7-18) mg/dL Creatinine 1.6 H (0.6-1.0) mg/dL Est Cr Clr Drug Dosing 40.54 mL/min Estimated GFR (MDRD) 33 L (>60) Glucose 154 H (74-106) mg/dL Calcium 8.1 L (8.5-10.1) mg/dL Med Orders - Current: Current Medications Acetaminophen (Tylenol) 650 mg PO Q4H PRN PRN Reason: Pain (Mild 1-3)/fever Last Admin: 09/25/19 19:42 Dose: 650 mg Albuterol (Proventil Neb Soln) 2.5 mg NEB Q4H PRN PRN Reason: Shortness Of Breath/wheezing Albuterol/Ipratropium (Duoneb 3.0-0.5 Mg/3 Ml) 3 ml NEB QIDRT [facility] Last Admin: 09/26/19 11:02 Dose: 3 ml Baclofen (Lioresal) 10 mg PO TID [facility] Last Admin: 09/26/19 08:24 Dose: 10 mg Bupropion HCl (Wellbutrin Xl) 150 mg PO DAILY [facility] Last Admin: 09/26/19 08:24 Dose: 150 mg Carvedilol (Coreg) 6.25 mg PO BID [facility] Last Admin: 09/26/19 08:25 Dose: 6.25 mg Docusate Sodium (Colace) 100 mg PO BID PRN PRN Reason: Constipation Duloxetine HCl (Cymbalta) 30 mg PO DAILY [facility] Last Admin: 09/26/19 08:24 Dose: 30 mg Ferrous Sulfate (Ferrous Sulfate) 325 mg PO DAILY [facility] Last Admin: 09/26/19 08:24 Dose: 325 mg Glipizide (Glucotrol Xl) 5 mg PO DAILY [facility] Last Admin: 09/26/19 08:25 Dose: 5 mg Insulin Glargine (Lantus Solostar) 10 units SUBCUT DAILY [facility] Last Admin: 09/26/19 08:30 Dose: 10 units Lisinopril (Prinivil) 5 mg PO DAILY [facility] Last Admin: 09/26/19 08:24 Dose: 5 mg Lorazepam (Ativan) 1 mg IV Q6H PRN PRN Reason: Nausea/Vomiting Nortriptyline HCl (Nortriptyline) 20 mg PO BEDTIME [facility] Last Admin: 09/25/19 21:15 Dose: 20 mg Ondansetron HCl (Zofran Odt) 4 mg PO Q6H PRN PRN Reason: Nausea able to take PO Pantoprazole Sodium (Protonix) 40 mg PO BIDAC [facility] Last Admin: 09/26/19 08:24 Dose: 40 mg Sodium Chloride (Saline Flush) 10 ml FLUSH ASDIRECTED PRN PRN Reason: Keep Vein Open Last Admin: 09/25/19 02:17 Dose: 10 ml Discontinued Medications Furosemide (Lasix) 60 mg IVPUSH ONETIME ONE Stop: 09/25/19 01:53 Last Admin: 09/25/19 02:15 Dose: 60 mg Furosemide (Lasix) Confirm Administered Dose 40 mg .ROUTE .STK-MED ONE Stop: 09/25/19 02:11 Last Admin: 09/25/19 02:17 Dose: Not Given Furosemide (Lasix) 60 mg IVPUSH ONETIME ONE Stop: 09/25/19 09:11 Last Admin: 09/25/19 09:21 Dose: 60 mg Furosemide (Lasix) 40 mg IVPUSH ONETIME ONE Stop: 09/25/19 15:01 Last Admin: 09/25/19 15:49 Dose: 40 mg Furosemide (Lasix) 40 mg IVPUSH ONETIME ONE Stop: 09/26/19 09:01 Last Admin: 09/26/19 10:41 Dose: 40 mg
== END 2019-09-26 15:00 | disposition home health service (06) ==
LOC: JP.ED 00:31 → JP.MS 03:49
PROVIDERS: ADMIT Internal Medicine; ATTEND Internal Medicine
DX: I13.0 Hypertensive heart and chronic kidney disease with heart failure and stage 1 through stage 4 chronic kidney disease, or unspecified chronic kidney disease (principal); I50.23 Acute on chronic systolic (congestive) heart failure; J96.01 Acute respiratory failure with hypoxia; N18.3 Chronic kidney disease, stage 3 (moderate); E11.22 Type 2 diabetes mellitus with diabetic chronic kidney disease; E11.59 Type 2 diabetes mellitus with other circulatory complications; E11.21 Type 2 diabetes mellitus with diabetic nephropathy; D64.9 Anemia, unspecified; E78.00 Pure hypercholesterolemia, unspecified; J44.9 Chronic obstructive pulmonary disease, unspecified; G43.909 Migraine, unspecified, not intractable, without status migrainosus; M19.90 Unspecified osteoarthritis, unspecified site; M06.9 Rheumatoid arthritis, unspecified; Z79.4 Long term (current) use of insulin; Z88.8 Allergy status to other drugs, medicaments and biological substances; Z88.0 Allergy status to penicillin; Z79.899 Other long term (current) drug therapy; Z87.891 Personal history of nicotine dependence; Z89.432 Acquired absence of left foot
CPT/HCPCS: 36415; 71045; 80048; 80053; 81001; 82962; 83880; 84484; 85025; 85027; 93005; 94640; A9270; J1815; J1940; 93010; 96374; 96376; 99285-25; G0378; J7620-GY

== ENCOUNTER 2019-12-06 13:08 | Inpatient (IN) | payer MEDICARE, MEDICAID ==
--- NOTE | 2019-12-06 13:39 | EDM.PDOC ---
ED HPI GENERAL MEDICAL PROBLEM - General Chief Complaint: General Stated Complaint: SWELLING IN ABD, L FOOT PAIN, SOB, COUGH Time Seen by Provider: 12/06/19 13:38 Source of Information: Reports: Patient History Limitations: Reports: No Limitations - History of Present Illness INITIAL COMMENTS - FREE TEXT/NARRATIVE: pt has been very sob with actiovity and lying flat. She is not having chest pain. She has noted increased swelling in both legs. She has had a cough but no fever. Onset: Gradual, Other (last 2-3 days. ) Duration: Hour(s): Location: Reports: Chest Associated Symptoms: Reports: Cough, Shortness of Breath, Other ( edema in both legs. ) - Related Data Allergies Allergy/AdvReac Type Severity Reaction Status Date / Time acyclovir [From Zovirax] Allergy Hives Verified 12/06/19 13:23 acyclovir sodium Allergy Hives Verified 12/06/19 13:23 [From Zovirax] amoxicillin [Amoxicillin] Allergy Hives Verified 12/06/19 13:23 Home Meds: Home Meds Baclofen 10 mg PO TID 08/21/19 [History] buPROPion HCl [Wellbutrin Xl] 150 mg PO DAILY 08/21/19 [History] Albuterol Sulfate [Proair Respiclick] 2 puff IH QID 09/25/19 [History] Albuterol [Proventil Neb Soln] 2.5 mg .XX QID 09/25/19 [History] Albuterol/Ipratropium [DuoNeb 3.0-0.5 MG/3 ML] 3 ml .XX QID 09/25/19 [History] DULoxetine HCl [Cymbalta] 30 mg PO DAILY 09/25/19 [History] Ferrous Gluconate 1 tab PO DAILY 09/25/19 [History] Insulin Aspart [NovoLOG] 0 - 15 units SUBCUT TID 09/25/19 [History] Insulin Detemir [Levemir Flextouch] 10 units SUBCUT DAILY 09/25/19 [History] Nortriptyline 20 mg PO BEDTIME 09/25/19 [History] Pantoprazole Sodium [Protonix] 40 mg PO BID 09/25/19 [History] atorvaSTATin [Lipitor] 40 mg PO DAILY 09/25/19 [History] carvediloL [Carvedilol] 6.25 mg PO BID 09/25/19 [History] lisinopriL [Lisinopril] 5 mg PO DAILY 09/25/19 [History] Furosemide 1 tab PO BID #60 tablet 09/26/19 [Rx] Pregabalin [Lyrica] 50 mg PO BID 12/06/19 [History] Past Medical History HEENT History: Reports: Impaired Vision Other HEENT History: tooth extractions, broken teeth Cardiovascular History: Reports: High Cholesterol, Hypertension Respiratory History: Reports: COPD, Pneumonia, Recurrent Genitourinary History: Reports: Diabetic Nephropathy [employer] History: Reports: Musculoskeletal History: Reports: Amputation, Back Pain, Chronic, Fibromyalgia, Osteoarthritis, RA Other Musculoskeletal History: 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 Neurological History: Reports: Migraines Psychiatric History: Reports: Anxiety, Depression Endocrine/Metabolic History: Reports: Diabetes, Type II Hematologic History: Reports: Other (See Below) - Infectious Disease History Infectious Disease History: Reports: Chicken Pox, Shingles - Past Surgical History HEENT Surgical History: Reports: Adenoidectomy, Tonsillectomy Musculoskeletal Surgical History: Reports: Amputation Social & Family History - Caffeine Use Caffeine Use: Reports: Coffee, Soda, Tea Other Caffeine Use: 2 cups per day, occassionally diet pepsi Caffeine Use Comment: 1-2 cups of coffee - Living Situation & Occupation Living situation: Reports: Single Occupation: Disabled ED ROS GENERAL - Review of Systems Review Of Systems: See Below Constitutional: Reports: Weight Gain, Other (pt has gained 10 lbs. ) HEENT: Reports: No Symptoms Respiratory: Reports: Shortness of Breath, Cough Cardiovascular: Reports: No Symptoms Endocrine: Reports: No Symptoms GI/Abdominal: Reports: No Symptoms : Reports: No Symptoms Musculoskeletal: Reports: No Symptoms Skin: Reports: No Symptoms Neurological: Reports: No Symptoms Psychiatric: Reports: Anxiety Hematologic/Lymphatic: Reports: No Symptoms ED EXAM, GENERAL - Physical Exam Exam: See Below Free Text/Narrative:: pt arrived with increased sob. She is having difficulty lying flat. She has noticed increased ankle swelling. She has not had a fever. Exam Limited By: No Limitations General Appearance: Alert, Anxious, Moderate Distress Ears: Normal TMs Nose: Normal Inspection Throat/Mouth: Normal Inspection Head: Atraumatic Neck: Normal Inspection Respiratory/Chest: Decreased Breath Sounds, Rales, Wheezing Cardiovascular: Regular Rate, Rhythm GI/Abdominal: Soft, Non-Tender (Female) Exam: Deferred Rectal (Female) Exam: Deferred Extremities: Normal Inspection Neurological: Alert, Oriented, Normal Cognition Psychiatric: Anxious Course - Vital Signs Last Recorded V/S: Last Vital Signs Temp 36.7 C 12/06/19 13:21 Pulse 101 H 12/06/19 13:21 Resp 18 12/06/19 13:21 BP 122/73 12/06/19 13:21 Pulse Ox 92 L 12/06/19 13:21 - Orders/Labs/Meds Orders: Active Orders 24 hr Category Date Time Status RT Aerosol Therapy [RC] ASDIRECTED Care 12/06/19 15:10 Active IRON/TIBC [CHEM] Stat Lab 12/06/19 16:33 Received Sodium Chloride 0.9% [Saline Flush] Med 12/06/19 15:35 Active 10 ml FLUSH ASDIRECTED PRN Saline Lock Insert [OM.PC] Routine Oth 12/06/19 15:35 Ordered Medication Orders Sodium Chloride (Saline Flush) 10 ml FLUSH ASDIRECTED PRN PRN Reason: Keep Vein Open Last Admin: 12/06/19 15:50 Dose: 10 ml Labs: Laboratory Tests 12/06/19 12/06/19 12/06/19 Range/Units 13:38 13:53 13:53 WBC 12.7 H (4.5-11.0) K/uL RBC 3.34 (3.30-5.50) M/uL Hgb 8.0 L (12.0-15.0) g/dL Hct 27.2 L (36.0-48.0) % MCV 81 (80-98) fL MCH 24 L (27-31) pg MCHC 29 L (32-36) % Plt Count 409 H (150-400) K/uL Neut % (Auto) 79 H (36-66) % Lymph % (Auto) 15 L (24-44) % Eddy % (Auto) 4 (2-6) % Eos % (Auto) 2 (2-4) % Baso % (Auto) 1 (0-1) % Puncture Site Rt radial ABG pH 7.470 H (7.350-7.450) ABG pCO2 35.1 (35.0-42.0) mmHg ABG pO2 65.5 L (75.0-100.0) mmHg ABG HCO3 25.2 (22.0-26.0) mmol/L ABG Total CO2 23.7 (21.0-25.0) mmol/L ABG O2 Saturation 93.5 L (95.0-98.0) % ABG O2 Content 10.6 L (15.0-23.0) %vol ABG Base Excess 2.0 mm/L ABG Hemoglobin 8.3 L (12.0-16.0) g/dL ABG Oxyhemoglobin 90.4 % ABG Carboxyhemoglobin 2.5 H (0.0-1.6) % ABG Methemoglobin 0.8 % Isidoro Test Passed O2 Delivery Device Room air Sodium (140-148) mmol/L Potassium (3.6-5.2) mmol/L Chloride (100-108) mmol/L Carbon Dioxide (21-32) mmol/L Anion Gap (5.0-14.0) mmol/L BUN (7-18) mg/dL Creatinine (0.6-1.0) mg/dL Est Cr Clr Drug Dosing mL/min Estimated GFR (MDRD) (>60) BUN/Creatinine Ratio Glucose (74-106) mg/dL Calcium (8.5-10.1) mg/dL Total Bilirubin (0.2-1.0) mg/dL AST (15-37) U/L ALT (12-78) U/L Alkaline Phosphatase (46-116) U/L NT-Pro-B Natriuret Pep (5-125) pg/mL Total Protein (6.4-8.2) g/dL Albumin (3.4-5.0) g/dL Globulin (2.3-3.5) g/dL Albumin/Globulin Ratio (1.2-2.2) Urine Color (YELLOW) Urine Appearance (CLEAR) Urine pH (5.0-8.0) Ur Specific [place] (1.008-1.030) Urine Protein (NEGATIVE) mg/dL Urine Glucose (UA) (NEGATIVE) mg/dL Urine Ketones (NEGATIVE) mg/dL Urine Occult Blood (NEGATIVE) Urine Nitrite (NEGATIVE) Urine Bilirubin (NEGATIVE) Urine Urobilinogen (0.2-1.0) EU/dL Ur Leukocyte Esterase (NEGATIVE) Urine RBC (0-5) Urine WBC (0-5) Ur Epithelial Cells Amorphous Sediment Urine Bacteria Urine Mucus Ethyl Alcohol mg/dL 12/06/19 12/06/19 12/06/19 Range/Units 13:56 13:56 15:11 WBC (4.5-11.0) K/uL RBC (3.30-5.50) M/uL Hgb (12.0-15.0) g/dL Hct (36.0-48.0) % MCV (80-98) fL MCH (27-31) pg MCHC (32-36) % Plt Count (150-400) K/uL Neut % (Auto) (36-66) % Lymph % (Auto) (24-44) % Eddy % (Auto) (2-6) % Eos % (Auto) (2-4) % Baso % (Auto) (0-1) % Puncture Site ABG pH (7.350-7.450) ABG pCO2 (35.0-42.0) mmHg ABG pO2 (75.0-100.0) mmHg ABG HCO3 (22.0-26.0) mmol/L ABG Total CO2 (21.0-25.0) mmol/L ABG O2 Saturation (95.0-98.0) % ABG O2 Content (15.0-23.0) %vol ABG Base Excess mm/L ABG Hemoglobin (12.0-16.0) g/dL ABG Oxyhemoglobin % ABG Carboxyhemoglobin (0.0-1.6) % ABG Methemoglobin % Isidoro Test O2 Delivery Device Sodium (140-148) mmol/L Potassium (3.6-5.2) mmol/L Chloride (100-108) mmol/L Carbon Dioxide (21-32) mmol/L Anion Gap (5.0-14.0) mmol/L BUN (7-18) mg/dL Creatinine (0.6-1.0) mg/dL Est Cr Clr Drug Dosing mL/min Estimated GFR (MDRD) (>60) BUN/Creatinine Ratio Glucose (74-106) mg/dL Calcium (8.5-10.1) mg/dL Total Bilirubin (0.2-1.0) mg/dL AST (15-37) U/L ALT (12-78) U/L Alkaline Phosphatase (46-116) U/L NT-Pro-B Natriuret Pep 12574 H (5-125) pg/mL Total Protein (6.4-8.2) g/dL Albumin (3.4-5.0) g/dL Globulin (2.3-3.5) g/dL Albumin/Globulin Ratio (1.2-2.2) Urine Color Yellow (YELLOW) Urine Appearance Slightly cloudy A (CLEAR) Urine pH 6.0 (5.0-8.0) Ur Specific [place] 1.025 (1.008-1.030) Urine Protein 100 H (NEGATIVE) mg/dL Urine Glucose (UA) 100 H (NEGATIVE) mg/dL Urine Ketones Negative (NEGATIVE) mg/dL Urine Occult Blood Small H (NEGATIVE) Urine Nitrite Negative (NEGATIVE) Urine Bilirubin Negative (NEGATIVE) Urine Urobilinogen 0.2 (0.2-1.0) EU/dL Ur Leukocyte Esterase Negative (NEGATIVE) Urine RBC 0-5 (0-5) Urine WBC 5-10 H (0-5) Ur Epithelial Cells Few Amorphous Sediment Not seen Urine Bacteria Rare Urine Mucus Not seen Ethyl Alcohol < 3 mg/dL Meds: Medications Generic Name Dose Route Start Last Admin Trade Name Freq PRN Reason Stop Dose Admin Sodium Chloride 10 ml 12/06/19 15:35 12/06/19 15:50 Saline Flush FLUSH 10 ml ASDIRECTED PRN Administration Keep Vein Open Discontinued Medications Generic Name Dose Route Start Last Admin Trade Name Freq PRN Reason Stop Dose Admin Albuterol 2.5 mg 12/06/19 15:10 12/06/19 15:15 Proventil Neb Soln NEB 12/06/19 15:11 2.5 mg ONETIME ONE Administration Furosemide 60 mg 12/06/19 15:34 12/06/19 15:48 Lasix IVPUSH 12/06/19 15:35 60 mg ONETIME ONE Administration - Re-Assessments/Exams Free Text/Narrative Re-Assessment/Exam: 12/06/19 16:20 p02 is 65 on the blood gases pt had a chest xray and she has a patchy infiltrate. This was thought to be inflamitory. Pt has shown progressive infiltrates. 12/06/19 16:44 12/06/19 16:53 her wbcs are mildly elevated. bnp is elevated. 12/06/19 16:53 Departure - Departure Time of Disposition: 16:54 Disposition: Admitted As Inpatient 67 Condition: Fair Clinical Impression: Fluid overload, Pneumonia, Iron deficiency Anemia Qualifiers: Anemia type: unspecified type Qualified Code(s): D64.9 - Anemia, unspecified - Discharge Information Referrals: PCP,None [Primary Care Provider] - Forms: ED Department Discharge Care Plan Goals: admit to Dr Thomas. Sepsis Event Note - Evaluation Sepsis Screening Result: No Definite Risk - Focused Exam Vital Signs: Vital Signs Temp Pulse Resp BP Pulse Ox 12/06/19 13:21 36.7 C 101 H 18 122/73 92 L Date Exam was Performed: 12/06/19 Time Exam was Performed: 16:44 - My Orders Last 24 Hours: My Active Orders 12/06/19 15:10 RT Aerosol Therapy [RC] ASDIRECTED 12/06/19 15:35 Sodium Chloride 0.9% [Saline Flush] 10 ml FLUSH ASDIRECTED PRN Saline Lock Insert [OM.PC] Routine 12/06/19 16:33 IRON/TIBC [CHEM] Stat - Assessment/Plan Last 24 Hours: My Active Orders 12/06/19 15:10 RT Aerosol Therapy [RC] ASDIRECTED 12/06/19 15:35 Sodium Chloride 0.9% [Saline Flush] 10 ml FLUSH ASDIRECTED PRN Saline Lock Insert [OM.PC] Routine 12/06/19 16:33 IRON/TIBC [CHEM] Stat
[2019-12-06] MEDS ORDERED: Albuterol 0.083% 2.5 MG/3 ML Neb Soln NEB ONE (15:10)
[2019-12-06] MEDS ORDERED: Furosemide 40 MG/4 ML VIAL IVPUSH ONE (15:34)
[2019-12-06] MEDS ORDERED: Sodium Chloride 0.9% 10 ML Syringe FLUSH PRN ×2 (15:35→18:01)
--- NOTE | 2019-12-06 16:10 | CRLCR ---
INDICATION: Dyspnea COMPARISON: September 25, 2019 TECHNIQUE: PA and lateral views of the chest were acquired FINDINGS: TUBES AND LINES: None. HEART AND MEDIASTINUM: The heart size is top-normal. The appearance of the heart and mediastinum is unchanged. LUNGS AND PLEURAL SPACES: Patchy multifocal airspace consolidation. This probably represents pneumonia or other inflammatory process. The appearance is not typical of pulmonary edema. There is probably a small left effusion.The overall appearance has worsened since the prior study OSSEOUS STRUCTURES: Age-appropriate appearance. No acute focal finding. IMPRESSION: Significant patchy multifocal consolidation and small left effusion. Worsened appearance when compared to September 25, 2019. This is likely inflammatory and is not typical for pulmonary edema. Further clinical correlation is advised. Dictated by Samuel Pitts MD @ Dec 06 2019 4:06PM Signed by Dr. Samuel Pitts @ Dec 06 2019 4:08PM
--- NOTE | 2019-12-06 17:43 | PCM.HP.2 ---
H&P History of Present Illness - General Date of Service: 12/06/19 Admit Problem/Dx: Admission Diagnosis/Problem Admission Diagnosis/Problem Dyspnea Source of Information: Patient, Old Records, Provider, RN Notes Reviewed History Limitations: Reports: No Limitations - History of Present Illness Initial Comments - Free Text/Narative: Ms. Sheppard is a 59-year-old woman who was admitted through the emergency department with shortness of breath secondary to acute on chronic systolic congestive heart failure and pulmonary infiltrates. She reports that she had been doing well until a few days ago when she began to develop peripheral edema and then significant shortness of breath over the last 24 hours. On presentation to the emergency department she had a mild elevation in her respiratory rate, but was not hypoxic. White blood cell count is modestly elevated and there is marked elevation in her BNP. She has chronic kidney disease stage III as well as type 2 diabetes mellitus. Chest x-ray shows patchy bilateral infiltrates more consistent with inflammation/infection than fluid. She has a known history of severe congestive heart failure with estimated systolic ejection fraction of 10%. Denies recent fever, chills, or sweats and has not had a productive cough. - Related Data Allergies/Adverse Reactions: Allergies Allergy/AdvReac Type Severity Reaction Status Date / Time acyclovir [From Zovirax] Allergy Hives Verified 12/06/19 13:23 acyclovir sodium Allergy Hives Verified 12/06/19 13:23 [From Zovirax] amoxicillin [Amoxicillin] Allergy Hives Verified 12/06/19 13:23 Home Medications: Home Meds Baclofen 10 mg PO TID 08/21/19 [History] buPROPion HCl [Wellbutrin Xl] 150 mg PO DAILY 08/21/19 [History] Albuterol Sulfate [Proair Respiclick] 2 puff IH QID 09/25/19 [History] Albuterol [Proventil Neb Soln] 2.5 mg .XX QID 09/25/19 [History] Albuterol/Ipratropium [DuoNeb 3.0-0.5 MG/3 ML] 3 ml .XX QID 09/25/19 [History] DULoxetine HCl [Cymbalta] 30 mg PO DAILY 09/25/19 [History] Ferrous Gluconate 1 tab PO DAILY 09/25/19 [History] Insulin Aspart [NovoLOG] 0 - 15 units SUBCUT TID 09/25/19 [History] Insulin Detemir [Levemir Flextouch] 10 units SUBCUT DAILY 09/25/19 [History] Nortriptyline 20 mg PO BEDTIME 09/25/19 [History] Pantoprazole Sodium [Protonix] 40 mg PO BID 09/25/19 [History] atorvaSTATin [Lipitor] 40 mg PO DAILY 09/25/19 [History] carvediloL [Carvedilol] 6.25 mg PO BID 09/25/19 [History] lisinopriL [Lisinopril] 5 mg PO DAILY 09/25/19 [History] Furosemide 1 tab PO BID #60 tablet 09/26/19 [Rx] Pregabalin [Lyrica] 50 mg PO BID 12/06/19 [History] Past Medical History HEENT History: Reports: Impaired Vision Other HEENT History: tooth extractions, broken teeth Cardiovascular History: Reports: High Cholesterol, Hypertension Respiratory History: Reports: COPD, Pneumonia, Recurrent Genitourinary History: Reports: Diabetic Nephropathy Other Genitourinary History: kidney failure 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: Musculoskeletal History: Reports: Amputation, Back Pain, Chronic, Fibromyalgia, Osteoarthritis, RA Other Musculoskeletal History: 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 Neurological History: Reports: Migraines Psychiatric History: Reports: Anxiety, Depression Endocrine/Metabolic History: Reports: Diabetes, Type II Hematologic History: Reports: Other (See Below) - Infectious Disease History Infectious Disease History: Reports: Chicken Pox, Shingles - Past Surgical History HEENT Surgical History: Reports: Adenoidectomy, Tonsillectomy Musculoskeletal Surgical History: Reports: Amputation Social & Family History - Tobacco Use Smoking Status *Q: Former Smoker Years of Tobacco use: 40 Packs/Tins Daily: 2 Used Tobacco, but Quit: Yes Month/Year Tobacco Last Used: 2 years ago Second Hand Smoke Exposure: No - Caffeine Use Caffeine Use: Reports: Coffee, Soda, Tea Other Caffeine Use: 2 cups per day, occassionally diet pepsi Caffeine Use Comment: 1-2 cups of coffee - Recreational Drug Use Recreational Drug Use: No - Living Situation & Occupation Living situation: Reports: Single Occupation: Disabled H&P Review of Systems - Review of Systems: Review Of Systems: See Below General: Reports: Weakness. Denies: Fever, Chills, Night Sweats HEENT: Reports: No Symptoms Pulmonary: Reports: Shortness of Breath, Cough. Denies: Wheezing, Pleuritic Chest Pain, Sputum, Hemoptysis Cardiovascular: Reports: Dyspnea on Exertion, Edema. Denies: Chest Pain, Palpitations, Orthopnea, PND, Lightheadedness Gastrointestinal: Reports: No Symptoms Genitourinary: Reports: No Symptoms Musculoskeletal: Reports: No Symptoms Skin: Reports: No Symptoms Psychiatric: Reports: No Symptoms Neurological: Reports: No Symptoms Hematologic/Lymphatic: Reports: No Symptoms Immunologic: Reports: No Symptoms Exam - Exam Exam: See Below - Vital Signs Vital Signs: Last Vital Signs Temp 98.1 F 12/06/19 13:21 Pulse 97 12/06/19 17:25 Resp 18 12/06/19 13:21 BP 131/77 12/06/19 17:25 Pulse Ox 92 L 12/06/19 17:25 Weight: 188 lb 4.396 oz - Exam Quality Assessment: DVT Prophylaxis General: Alert, Oriented, Cooperative, Mild Distress HEENT: Conjunctiva Clear, Hearing Intact, Mucosa Moist & Orchid, Normal Nasal Septum, Posterior Pharynx Clear, Pupils Equal Neck: Supple, Trachea Midline, +2 Carotid Pulse wo Bruit Lungs: Decreased Breath Sounds, Rales. No: Crackles, Rhonchi, Rub, Wheezing Cardiovascular: Regular Rate, Regular Rhythm, Normal S1, Normal S2, Systolic Murmur. No: Diastolic Murmur GI/Abdominal Exam: Soft, Non-Tender, No Organomegaly, No Distention Back Exam: Normal Inspection, Full Range of Motion Extremities: Non-Tender, Pedal Edema Skin: Warm, Dry, Intact Neurological: Cranial Nerves Intact, Strength Equal Bilateral, Normal Speech, Normal Tone, Sensation Intact. No: Focal Deficit Neuro Extensive - Mental Status: Alert, Oriented x3, Normal Mood/Affect, Normal Cognition, Memory Intact - Patient Data Lab Results Last 24 hrs: Laboratory Results - last 24 hr 12/06/19 12/06/19 12/06/19 Range/Units 13:38 13:53 13:53 WBC 12.7 H (4.5-11.0) K/uL RBC 3.34 (3.30-5.50) M/uL Hgb 8.0 L (12.0-15.0) g/dL Hct 27.2 L (36.0-48.0) % MCV 81 (80-98) fL MCH 24 L (27-31) pg MCHC 29 L (32-36) % Plt Count 409 H (150-400) K/uL Neut % (Auto) 79 H (36-66) % Lymph % (Auto) 15 L (24-44) % Sebastian % (Auto) 4 (2-6) % Eos % (Auto) 2 (2-4) % Baso % (Auto) 1 (0-1) % Puncture Site Rt radial ABG pH 7.470 H (7.350-7.450) ABG pCO2 35.1 (35.0-42.0) mmHg ABG pO2 65.5 L (75.0-100.0) mmHg ABG HCO3 25.2 (22.0-26.0) mmol/L ABG Total CO2 23.7 (21.0-25.0) mmol/L ABG O2 Saturation 93.5 L (95.0-98.0) % ABG O2 Content 10.6 L (15.0-23.0) %vol ABG Base Excess 2.0 mm/L ABG Hemoglobin 8.3 L (12.0-16.0) g/dL ABG Oxyhemoglobin 90.4 % ABG Carboxyhemoglobin 2.5 H (0.0-1.6) % ABG Methemoglobin 0.8 % Isidoro Test Passed O2 Delivery Device Room air Sodium (140-148) mmol/L Potassium (3.6-5.2) mmol/L Chloride (100-108) mmol/L Carbon Dioxide (21-32) mmol/L Anion Gap (5.0-14.0) mmol/L BUN (7-18) mg/dL Creatinine (0.6-1.0) mg/dL Est Cr Clr Drug Dosing mL/min Estimated GFR (MDRD) (>60) BUN/Creatinine Ratio Glucose (74-106) mg/dL Calcium (8.5-10.1) mg/dL Iron (50-170) ug/dL TIBC (250-450) ug/dl % Saturation (20-55) % Total Bilirubin (0.2-1.0) mg/dL AST (15-37) U/L ALT (12-78) U/L Alkaline Phosphatase (46-116) U/L NT-Pro-B Natriuret Pep (5-125) pg/mL Total Protein (6.4-8.2) g/dL Albumin (3.4-5.0) g/dL Globulin (2.3-3.5) g/dL Albumin/Globulin Ratio (1.2-2.2) Urine Color (YELLOW) Urine Appearance (CLEAR) Urine pH (5.0-8.0) Ur Specific [place] (1.008-1.030) Urine Protein (NEGATIVE) mg/dL Urine Glucose (UA) (NEGATIVE) mg/dL Urine Ketones (NEGATIVE) mg/dL Urine Occult Blood (NEGATIVE) Urine Nitrite (NEGATIVE) Urine Bilirubin (NEGATIVE) Urine Urobilinogen (0.2-1.0) EU/dL Ur Leukocyte Esterase (NEGATIVE) Urine RBC (0-5) Urine WBC (0-5) Ur Epithelial Cells Amorphous Sediment Urine Bacteria Urine Mucus Ethyl Alcohol mg/dL 12/06/19 12/06/19 12/06/19 Range/Units 13:56 13:56 15:11 WBC (4.5-11.0) K/uL RBC (3.30-5.50) M/uL Hgb (12.0-15.0) g/dL Hct (36.0-48.0) % MCV (80-98) fL MCH (27-31) pg MCHC (32-36) % Plt Count (150-400) K/uL Neut % (Auto) (36-66) % Lymph % (Auto) (24-44) % Sebastian % (Auto) (2-6) % Eos % (Auto) (2-4) % Baso % (Auto) (0-1) % Puncture Site ABG pH (7.350-7.450) ABG pCO2 (35.0-42.0) mmHg ABG pO2 (75.0-100.0) mmHg ABG HCO3 (22.0-26.0) mmol/L ABG Total CO2 (21.0-25.0) mmol/L ABG O2 Saturation (95.0-98.0) % ABG O2 Content (15.0-23.0) %vol ABG Base Excess mm/L ABG Hemoglobin (12.0-16.0) g/dL ABG Oxyhemoglobin % ABG Carboxyhemoglobin (0.0-1.6) % ABG Methemoglobin % Isidoro Test O2 Delivery Device Sodium (140-148) mmol/L Potassium (3.6-5.2) mmol/L Chloride (100-108) mmol/L Carbon Dioxide (21-32) mmol/L Anion Gap (5.0-14.0) mmol/L BUN (7-18) mg/dL Creatinine (0.6-1.0) mg/dL Est Cr Clr Drug Dosing mL/min Estimated GFR (MDRD) (>60) BUN/Creatinine Ratio Glucose (74-106) mg/dL Calcium (8.5-10.1) mg/dL Iron (50-170) ug/dL TIBC (250-450) ug/dl % Saturation (20-55) % Total Bilirubin (0.2-1.0) mg/dL AST (15-37) U/L ALT (12-78) U/L Alkaline Phosphatase (46-116) U/L NT-Pro-B Natriuret Pep 41258 H (5-125) pg/mL Total Protein (6.4-8.2) g/dL Albumin (3.4-5.0) g/dL Globulin (2.3-3.5) g/dL Albumin/Globulin Ratio (1.2-2.2) Urine Color Yellow (YELLOW) Urine Appearance Slightly cloudy A (CLEAR) Urine pH 6.0 (5.0-8.0) Ur Specific [place] 1.025 (1.008-1.030) Urine Protein 100 H (NEGATIVE) mg/dL Urine Glucose (UA) 100 H (NEGATIVE) mg/dL Urine Ketones Negative (NEGATIVE) mg/dL Urine Occult Blood Small H (NEGATIVE) Urine Nitrite Negative (NEGATIVE) Urine Bilirubin Negative (NEGATIVE) Urine Urobilinogen 0.2 (0.2-1.0) EU/dL Ur Leukocyte Esterase Negative (NEGATIVE) Urine RBC 0-5 (0-5) Urine WBC 5-10 H (0-5) Ur Epithelial Cells Few Amorphous Sediment Not seen Urine Bacteria Rare Urine Mucus Not seen Ethyl Alcohol < 3 mg/dL 12/06/19 Range/Units 16:33 WBC (4.5-11.0) K/uL RBC (3.30-5.50) M/uL Hgb (12.0-15.0) g/dL Hct (36.0-48.0) % MCV (80-98) fL MCH (27-31) pg MCHC (32-36) % Plt Count (150-400) K/uL Neut % (Auto) (36-66) % Lymph % (Auto) (24-44) % Sebastian % (Auto) (2-6) % Eos % (Auto) (2-4) % Baso % (Auto) (0-1) % Puncture Site ABG pH (7.350-7.450) ABG pCO2 (35.0-42.0) mmHg ABG pO2 (75.0-100.0) mmHg ABG HCO3 (22.0-26.0) mmol/L ABG Total CO2 (21.0-25.0) mmol/L ABG O2 Saturation (95.0-98.0) % ABG O2 Content (15.0-23.0) %vol ABG Base Excess mm/L ABG Hemoglobin (12.0-16.0) g/dL ABG Oxyhemoglobin % ABG Carboxyhemoglobin (0.0-1.6) % ABG Methemoglobin % Isidoro Test O2 Delivery Device Sodium (140-148) mmol/L Potassium (3.6-5.2) mmol/L Chloride (100-108) mmol/L Carbon Dioxide (21-32) mmol/L Anion Gap (5.0-14.0) mmol/L BUN (7-18) mg/dL Creatinine (0.6-1.0) mg/dL Est Cr Clr Drug Dosing mL/min Estimated GFR (MDRD) (>60) BUN/Creatinine Ratio Glucose (74-106) mg/dL Calcium (8.5-10.1) mg/dL Iron 19 L (50-170) ug/dL TIBC 264 (250-450) ug/dl % Saturation 7 L (20-55) % Total Bilirubin (0.2-1.0) mg/dL AST (15-37) U/L ALT (12-78) U/L Alkaline Phosphatase (46-116) U/L NT-Pro-B Natriuret Pep (5-125) pg/mL Total Protein (6.4-8.2) g/dL Albumin (3.4-5.0) g/dL Globulin (2.3-3.5) g/dL Albumin/Globulin Ratio (1.2-2.2) Urine Color (YELLOW) Urine Appearance (CLEAR) Urine pH (5.0-8.0) Ur Specific [place] (1.008-1.030) Urine Protein (NEGATIVE) mg/dL Urine Glucose (UA) (NEGATIVE) mg/dL Urine Ketones (NEGATIVE) mg/dL Urine Occult Blood (NEGATIVE) Urine Nitrite (NEGATIVE) Urine Bilirubin (NEGATIVE) Urine Urobilinogen (0.2-1.0) EU/dL Ur Leukocyte Esterase (NEGATIVE) Urine RBC (0-5) Urine WBC (0-5) Ur Epithelial Cells Amorphous Sediment Urine Bacteria Urine Mucus Ethyl Alcohol mg/dL Result Diagrams: 12/06/19 13:53 12/06/19 13:53 Sepsis Event Note - Evaluation Sepsis Screening Result: No Definite Risk - Focused Exam Vital Signs: Vital Signs Temp Pulse Resp BP Pulse Ox 12/06/19 17:25 97 131/77 92 L 12/06/19 13:21 98.1 F 101 H 18 122/73 92 L Date Exam was Performed: 12/06/19 Time Exam was Performed: 18:31 *Q Meaningful Use (ADM) - VTE Risk Assess *Q Each Risk Factor Represents 1 Point: Age 41 - 59 years, Swollen Legs, Current, Obesity ( BMI > 25 kg/m2), Congestive heart failure (CHF), Abnormal Pulmonary Function (COPD) Total Score 1 Point Risk Factors: 5 Each Risk Factor Represents 2 Points: None Total Score 2 Point Risk Factors: 0 Each Risk Factor Represents 3 Points: None Total Score 3 Point Risk Factors: 0 Each Risk Factor Represents 5 Points: None Total Score 5 Point Risk Factors: 0 Venous Thromboembolism Risk Factor Score *Q: 5 Problem List Initiated/Reviewed/Updated: Yes Orders Last 24hrs: Active Orders 24 hr Category Date Time Status Patient Status Manage Transfer [TRANSFER] Routine ADT 12/06/19 16:38 Active RT Aerosol Therapy [RC] ASDIRECTED Care 12/06/19 15:10 Active Sodium Chloride 0.9% [Saline Flush] Med 12/06/19 15:35 Active 10 ml FLUSH ASDIRECTED PRN Saline Lock Insert [OM.PC] Routine Oth 12/06/19 15:35 Ordered Resuscitation Status Routine Resus Stat 12/06/19 16:41 Ordered Medication Orders Sodium Chloride (Saline Flush) 10 ml FLUSH ASDIRECTED PRN PRN Reason: Keep Vein Open Last Admin: 12/06/19 15:50 Dose: 10 ml Assessment/Plan Comment:: ASSESSMENT AND PLAN ACUTE ON CHRONIC SYSTOLIC CONGESTIVE HEART FAILURE-history of severely decreased left ventricular systolic ejection fraction -2 g sodium diet -Bumex 2 mg IV every 12 hours -Reassess in a.m. PATCHY BILATERAL PULMONARY INFILTRATES-more consistent with infection than fluid -CT scan of the chest without contrast -Blood cultures pending -Antibiotic therapy for community-acquired pneumonia; doxycycline and ceftriaxone, pending further evaluation TYPE 2 DIABETES MELLITUS -Continue usual dose of long-acting insulin -4 times daily glucometers -Low-dose sliding scale Humalog CHRONIC KIDNEY DISEASE STAGE III -Closely monitor urine output and renal function with diuresis CHRONIC ANEMIA-given her severe heart failure we will plan transfusion of 1 unit of red blood cells -Transfuse 1 unit of RBCs -Reassess hemoglobin in a.m. MAINTENANCE ISSUES -DVT prophylaxis; Lovenox 40 mg subcu daily -GI prophylaxis; not indicated -Haider catheter; not indicated -Nutrition; 2 g sodium consistent carb diet -Nicotine dependence; not required CODE STATUS-FULL CODE ADMISSION STATUS-patient will be admitted to inpatient status, expect at least a 2 night hospital stay for evaluation and management of problems as outlined above. At the time of this admission I do not reasonably expected evaluation and management of this problem will require more than a 96 hour hospital stay. DISPOSITION-anticipate discharge to home after the hospital stay. PRIMARY CARE PROVIDER- - Mortality Measure Prognosis:: Good
[2019-12-06] MEDS ORDERED: Albuterol 0.083% 2.5 MG/3 ML Neb Soln NEB PRN (18:01)
[2019-12-06] MEDS ORDERED: 50% Dextrose in Water 50 ML Syringe IV PRN (18:01)
[2019-12-06] MEDS ORDERED: Glucose Gel 15 GM in 37.5 GM Tube PO PRN (18:01)
[2019-12-06] MEDS ORDERED: Polyethylene Glycol 3350 Powder 17 GM Packet PO PRN (18:01)
[2019-12-06] MEDS ORDERED: Ondansetron 4 MG/2 ML SDV IV PRN (18:01)
[2019-12-06] MEDS ORDERED: Acetaminophen 325 MG Tab PO PRN (18:01)
[2019-12-06] MEDS ORDERED: cefTRIAXone 1 GM in Sodium Chloride 0.9% 50 ML IV SCH (18:30)
[2019-12-06] MEDS: Enoxaparin 40 MG/0.4 ML Syringe SUBCUT SCH ×2 (18:47→19:10)
[2019-12-06] MEDS: Insulin Lispro 100 Unit/ML 3 ML KwikPen SUBCUT SCH ×2 (18:47→22:00)
[2019-12-06] MEDS ORDERED: Sodium Chloride 0.9% 50 ML ONE (18:50)
[2019-12-06] MEDS ORDERED: Bumetanide 2.5 MG/10 ML MDV IVPUSH SCH (19:00)
[2019-12-06] MEDS ORDERED: Doxycycline 100 MG in Sodium Chloride 0.9% 100 ML IV SCH (20:00)
[2019-12-06] MEDS: Albuterol/Ipratropium 3.0-0.5 MG/3 ML Neb Soln NEB SCH (20:26)
[2019-12-06] MEDS: Pantoprazole 40 MG Tab.CR PO SCH (20:28)
[2019-12-06] MEDS: Carvedilol 6.25 MG Tab PO SCH (20:28)
[2019-12-06] MEDS: Pregabalin 50 MG Cap PO SCH (20:28)
--- NOTE | 2019-12-06 20:38 | CRLCT ---
INDICATION: Dyspnea. Abnormal chest x-ray. CT CHEST WITHOUT CONTRAST TECHNIQUE: Multidetector CT imaging was performed through the chest without intravenous contrast administration. Coronal and sagittal reconstructions were generated. COMPARISON: None. FINDINGS: Lungs and airways: Diffuse thickening of interstitial septa, greatest in the lung apices, likely representing interstitial edema. Patchy airspace infiltrates in both lungs, predominantly perihilar in distribution. Small areas of atelectasis or consolidation in the right middle lobe and inferior lingula. Central airways are patent. Pleura and pleural spaces: Moderate-sized bilateral pleural effusions. Heart and mediastinum: Borderline cardiomegaly. No significant pericardial effusion. Diminished density of blood within the cardiac chambers relative to the myocardium, suggesting anemia. Subcentimeter hypodense nodule within the right thyroid lobe. A few scattered upper normal sized mediastinal lymph nodes. Vascular structures: Normal caliber thoracic aorta. Mild thoracic aortic and coronary artery atherosclerotic calcifications. Chest wall and axillae: No mass or axillary lymphadenopathy. Osseous structures: Old healed lower lateral left rib fractures. No acute fractures identified. Minor spinal degenerative changes. Upper abdomen: Unremarkable. IMPRESSION: 1. Patchy bilateral airspace infiltrates, probable interstitial edema, and moderate sized bilateral pleural effusions. Pulmonary edema is favored to be the underlying process. Alternatively, pneumonia or an inflammatory process could be considered. 2. Borderline cardiomegaly. 3. Findings suggesting anemia. Laboratory correlation is suggested. 4. Nonacute additional findings as detailed above. Please note that all CT scans at this facility use dose modulation, iterative reconstruction, and\or weight-based dosing when appropriate to reduce radiation dose to as low as reasonable achievable. RADHA CISNEROS MD [employer] [employer] Dictated by Lion Cisneros MD @ 12/06/2019 8:34:16 PM Dictated by: Lion Cisneros MD @ 12/06/2019 20:37:04 (Electronically Signed) [facility]
[2019-12-06] MEDS ORDERED: Nortriptyline 10 MG Cap PO SCH (21:00)
[2019-12-06] MEDS ORDERED: Nortriptyline 25 MG Cap PO SCH (22:00)
[2019-12-07] MEDS: Albuterol/Ipratropium 3.0-0.5 MG/3 ML Neb Soln NEB SCH ×4 (07:34→20:28)
[2019-12-07] MEDS: Insulin Lispro 100 Unit/ML 3 ML KwikPen SUBCUT SCH ×4 (07:54→21:37)
[2019-12-07] MEDS: Insulin Glargine,Human Rec. Analog 100 Units/ML 3 ML Pen SUBCUT SCH (08:50)
[2019-12-07] MEDS: DULoxetine 30 MG Cap PO SCH (08:52)
[2019-12-07] MEDS: atorvaSTATin 20 MG Tab PO SCH (08:52)
[2019-12-07] MEDS: Pantoprazole 40 MG Tab.CR PO SCH ×2 (08:52→20:24)
[2019-12-07] MEDS: Pregabalin 50 MG Cap PO SCH ×2 (08:52→20:28)
[2019-12-07] MEDS: Carvedilol 6.25 MG Tab PO SCH ×2 (08:53→20:25)
[2019-12-07] MEDS: Bumetanide 2.5 MG/10 ML MDV IVPUSH SCH ×2 (08:53→20:28)
[2019-12-07] MEDS: buPROPion 150 MG Tab.ER PO SCH (08:53)
[2019-12-07] MEDS ORDERED: Insulin Glargine,Human Rec. Analog 100 Units/ML 3 ML Pen SUBCUT SCH (09:00)
[2019-12-07] MEDS ORDERED: Lisinopril 5 MG Tab PO SCH (09:00)
[2019-12-07] MEDS ORDERED: Doxycycline 100 MG in Sodium Chloride 0.9% 100 ML IV SCH (09:00)
--- NOTE | 2019-12-07 09:14 | PCM.PN ---
- General Info Date of Service: 12/07/19 Subjective Update: Ms. Sheppard has been stable since admission and has had a fairly good diuresis thus far. She reports less shortness of breath and less peripheral edema. - Review of Systems General: Reports: No Symptoms Pulmonary: Reports: Shortness of Breath. Denies: Pleuritic Chest Pain, Cough, Sputum, Hemoptysis, Wheezing Cardiovascular: Reports: Dyspnea on Exertion, Edema. Denies: Chest Pain, Palpitations, Orthopnea, PND, Lightheadedness Gastrointestinal: Reports: No Symptoms - Patient Data Vitals - Most Recent: Last Vital Signs Temp 97.3 F 12/07/19 07:49 Pulse 88 12/07/19 08:53 Resp 16 12/07/19 07:49 BP 134/74 12/07/19 08:53 Pulse Ox 95 12/07/19 07:49 Weight - Most Recent: 188 lb 4.396 oz I&O - Last 24 Hours: Intake & Output 12/06/19 12/07/19 12/07/19 22:59 06:59 14:59 Intake Total 0 312 Output Total 2049 1000 Balance -2049 312 -1000 Lab Results Last 24 Hours: Laboratory Results - last 24 hr 12/06/19 12/06/19 12/06/19 Range/Units 13:38 13:53 13:53 WBC 12.7 H (4.5-11.0) K/uL RBC 3.34 (3.30-5.50) M/uL Hgb 8.0 L (12.0-15.0) g/dL Hct 27.2 L (36.0-48.0) % MCV 81 (80-98) fL MCH 24 L (27-31) pg MCHC 29 L (32-36) % Plt Count 409 H (150-400) K/uL Neut % (Auto) 79 H (36-66) % Lymph % (Auto) 15 L (24-44) % [place] % (Auto) 4 (2-6) % Eos % (Auto) 2 (2-4) % Baso % (Auto) 1 (0-1) % Puncture Site Rt radial ABG pH 7.470 H (7.350-7.450) ABG pCO2 35.1 (35.0-42.0) mmHg ABG pO2 65.5 L (75.0-100.0) mmHg ABG HCO3 25.2 (22.0-26.0) mmol/L ABG Total CO2 23.7 (21.0-25.0) mmol/L ABG O2 Saturation 93.5 L (95.0-98.0) % ABG O2 Content 10.6 L (15.0-23.0) %vol ABG Base Excess 2.0 mm/L ABG Hemoglobin 8.3 L (12.0-16.0) g/dL ABG Oxyhemoglobin 90.4 % ABG Carboxyhemoglobin 2.5 H (0.0-1.6) % ABG Methemoglobin 0.8 % Isidoro Test Passed O2 Delivery Device Room air Oxygen Flow Rate L Sodium (140-148) mmol/L Potassium (3.6-5.2) mmol/L Chloride (100-108) mmol/L Carbon Dioxide (21-32) mmol/L Anion Gap (5.0-14.0) mmol/L BUN (7-18) mg/dL Creatinine (0.6-1.0) mg/dL Est Cr Clr Drug Dosing mL/min Estimated GFR (MDRD) (>60) BUN/Creatinine Ratio Glucose (74-106) mg/dL Calcium (8.5-10.1) mg/dL Magnesium (1.8-2.4) mg/dL Iron (50-170) ug/dL TIBC (250-450) ug/dl % Saturation (20-55) % Total Bilirubin (0.2-1.0) mg/dL AST (15-37) U/L ALT (12-78) U/L Alkaline Phosphatase (46-116) U/L NT-Pro-B Natriuret Pep (5-125) pg/mL Total Protein (6.4-8.2) g/dL Albumin (3.4-5.0) g/dL Globulin (2.3-3.5) g/dL Albumin/Globulin Ratio (1.2-2.2) Procalcitonin ng/mL Urine Color (YELLOW) Urine Appearance (CLEAR) Urine pH (5.0-8.0) Ur Specific [place] (1.008-1.030) Urine Protein (NEGATIVE) mg/dL Urine Glucose (UA) (NEGATIVE) mg/dL Urine Ketones (NEGATIVE) mg/dL Urine Occult Blood (NEGATIVE) Urine Nitrite (NEGATIVE) Urine Bilirubin (NEGATIVE) Urine Urobilinogen (0.2-1.0) EU/dL Ur Leukocyte Esterase (NEGATIVE) Urine RBC (0-5) Urine WBC (0-5) Ur Epithelial Cells Amorphous Sediment Urine Bacteria Urine Mucus Ethyl Alcohol mg/dL Blood Type Gel Antibody Screen Crossmatch 12/06/19 12/06/19 12/06/19 Range/Units 13:56 13:56 15:11 WBC (4.5-11.0) K/uL RBC (3.30-5.50) M/uL Hgb (12.0-15.0) g/dL Hct (36.0-48.0) % MCV (80-98) fL MCH (27-31) pg MCHC (32-36) % Plt Count (150-400) K/uL Neut % (Auto) (36-66) % Lymph % (Auto) (24-44) % [place] % (Auto) (2-6) % Eos % (Auto) (2-4) % Baso % (Auto) (0-1) % Puncture Site ABG pH (7.350-7.450) ABG pCO2 (35.0-42.0) mmHg ABG pO2 (75.0-100.0) mmHg ABG HCO3 (22.0-26.0) mmol/L ABG Total CO2 (21.0-25.0) mmol/L ABG O2 Saturation (95.0-98.0) % ABG O2 Content (15.0-23.0) %vol ABG Base Excess mm/L ABG Hemoglobin (12.0-16.0) g/dL ABG Oxyhemoglobin % ABG Carboxyhemoglobin (0.0-1.6) % ABG Methemoglobin % Isidoro Test O2 Delivery Device Oxygen Flow Rate L Sodium (140-148) mmol/L Potassium (3.6-5.2) mmol/L Chloride (100-108) mmol/L Carbon Dioxide (21-32) mmol/L Anion Gap (5.0-14.0) mmol/L BUN (7-18) mg/dL Creatinine (0.6-1.0) mg/dL Est Cr Clr Drug Dosing mL/min Estimated GFR (MDRD) (>60) BUN/Creatinine Ratio Glucose (74-106) mg/dL Calcium (8.5-10.1) mg/dL Magnesium (1.8-2.4) mg/dL Iron (50-170) ug/dL TIBC (250-450) ug/dl % Saturation (20-55) % Total Bilirubin (0.2-1.0) mg/dL AST (15-37) U/L ALT (12-78) U/L Alkaline Phosphatase (46-116) U/L NT-Pro-B Natriuret Pep 83196 H (5-125) pg/mL Total Protein (6.4-8.2) g/dL Albumin (3.4-5.0) g/dL Globulin (2.3-3.5) g/dL Albumin/Globulin Ratio (1.2-2.2) Procalcitonin ng/mL Urine Color Yellow (YELLOW) Urine Appearance Slightly cloudy A (CLEAR) Urine pH 6.0 (5.0-8.0) Ur Specific [place] 1.025 (1.008-1.030) Urine Protein 100 H (NEGATIVE) mg/dL Urine Glucose (UA) 100 H (NEGATIVE) mg/dL Urine Ketones Negative (NEGATIVE) mg/dL Urine Occult Blood Small H (NEGATIVE) Urine Nitrite Negative (NEGATIVE) Urine Bilirubin Negative (NEGATIVE) Urine Urobilinogen 0.2 (0.2-1.0) EU/dL Ur Leukocyte Esterase Negative (NEGATIVE) Urine RBC 0-5 (0-5) Urine WBC 5-10 H (0-5) Ur Epithelial Cells Few Amorphous Sediment Not seen Urine Bacteria Rare Urine Mucus Not seen Ethyl Alcohol < 3 mg/dL Blood Type Gel Antibody Screen Crossmatch 12/06/19 12/06/19 12/06/19 Range/Units 16:33 18:10 18:13 WBC (4.5-11.0) K/uL RBC (3.30-5.50) M/uL Hgb (12.0-15.0) g/dL Hct (36.0-48.0) % MCV (80-98) fL MCH (27-31) pg MCHC (32-36) % Plt Count (150-400) K/uL Neut % (Auto) (36-66) % Lymph % (Auto) (24-44) % [place] % (Auto) (2-6) % Eos % (Auto) (2-4) % Baso % (Auto) (0-1) % Puncture Site ABG pH (7.350-7.450) ABG pCO2 (35.0-42.0) mmHg ABG pO2 (75.0-100.0) mmHg ABG HCO3 (22.0-26.0) mmol/L ABG Total CO2 (21.0-25.0) mmol/L ABG O2 Saturation (95.0-98.0) % ABG O2 Content (15.0-23.0) %vol ABG Base Excess mm/L ABG Hemoglobin (12.0-16.0) g/dL ABG Oxyhemoglobin % ABG Carboxyhemoglobin (0.0-1.6) % ABG Methemoglobin % Isidoro Test O2 Delivery Device Oxygen Flow Rate L Sodium (140-148) mmol/L Potassium (3.6-5.2) mmol/L Chloride (100-108) mmol/L Carbon Dioxide (21-32) mmol/L Anion Gap (5.0-14.0) mmol/L BUN (7-18) mg/dL Creatinine (0.6-1.0) mg/dL Est Cr Clr Drug Dosing mL/min Estimated GFR (MDRD) (>60) BUN/Creatinine Ratio Glucose (74-106) mg/dL Calcium (8.5-10.1) mg/dL Magnesium (1.8-2.4) mg/dL Iron 19 L (50-170) ug/dL TIBC 264 (250-450) ug/dl % Saturation 7 L (20-55) % Total Bilirubin (0.2-1.0) mg/dL AST (15-37) U/L ALT (12-78) U/L Alkaline Phosphatase (46-116) U/L NT-Pro-B Natriuret Pep (5-125) pg/mL Total Protein (6.4-8.2) g/dL Albumin (3.4-5.0) g/dL Globulin (2.3-3.5) g/dL Albumin/Globulin Ratio (1.2-2.2) Procalcitonin < 0.05 ng/mL Urine Color (YELLOW) Urine Appearance (CLEAR) Urine pH (5.0-8.0) Ur Specific [place] (1.008-1.030) Urine Protein (NEGATIVE) mg/dL Urine Glucose (UA) (NEGATIVE) mg/dL Urine Ketones (NEGATIVE) mg/dL Urine Occult Blood (NEGATIVE) Urine Nitrite (NEGATIVE) Urine Bilirubin (NEGATIVE) Urine Urobilinogen (0.2-1.0) EU/dL Ur Leukocyte Esterase (NEGATIVE) Urine RBC (0-5) Urine WBC (0-5) Ur Epithelial Cells Amorphous Sediment Urine Bacteria Urine Mucus Ethyl Alcohol mg/dL Blood Type O POSITIVE Gel Antibody Screen Negative Crossmatch See Detail 12/06/19 12/07/19 12/07/19 Range/Units 18:13 05:11 05:11 WBC 8.1 (4.5-11.0) K/uL RBC 3.54 (3.30-5.50) M/uL Hgb 8.5 L (12.0-15.0) g/dL Hct 28.9 L (36.0-48.0) % MCV 82 (80-98) fL MCH 24 L (27-31) pg MCHC 29 L (32-36) % Plt Count 350 (150-400) K/uL Neut % (Auto) 59 (36-66) % Lymph % (Auto) 28 (24-44) % [place] % (Auto) 6 (2-6) % Eos % (Auto) 6 H (2-4) % Baso % (Auto) 1 (0-1) % Puncture Site Rt radial ABG pH 7.454 H (7.350-7.450) ABG pCO2 39.5 (35.0-42.0) mmHg ABG pO2 59.8 L (75.0-100.0) mmHg ABG HCO3 27.3 H (22.0-26.0) mmol/L ABG Total CO2 25.8 H (21.0-25.0) mmol/L ABG O2 Saturation 89.8 L (95.0-98.0) % ABG O2 Content 10.0 L (15.0-23.0) %vol ABG Base Excess 3.6 mm/L ABG Hemoglobin 8.1 L (12.0-16.0) g/dL ABG Oxyhemoglobin 87.6 % ABG Carboxyhemoglobin 1.6 (0.0-1.6) % ABG Methemoglobin 0.8 % Isidoro Test Pass O2 Delivery Device Nasal cannula Oxygen Flow Rate 3.0 L Sodium 140 (140-148) mmol/L Potassium 4.0 (3.6-5.2) mmol/L Chloride 106 (100-108) mmol/L Carbon Dioxide 29 (21-32) mmol/L Anion Gap 5.2 (5.0-14.0) mmol/L BUN 35 H (7-18) mg/dL Creatinine 1.7 H (0.6-1.0) mg/dL Est Cr Clr Drug Dosing 37.56 mL/min Estimated GFR (MDRD) 31 L (>60) BUN/Creatinine Ratio Glucose 163 H (74-106) mg/dL Calcium 8.1 L (8.5-10.1) mg/dL Magnesium 2.0 (1.8-2.4) mg/dL Iron (50-170) ug/dL TIBC (250-450) ug/dl % Saturation (20-55) % Total Bilirubin (0.2-1.0) mg/dL AST (15-37) U/L ALT (12-78) U/L Alkaline Phosphatase (46-116) U/L NT-Pro-B Natriuret Pep (5-125) pg/mL Total Protein (6.4-8.2) g/dL Albumin (3.4-5.0) g/dL Globulin (2.3-3.5) g/dL Albumin/Globulin Ratio (1.2-2.2) Procalcitonin ng/mL Urine Color (YELLOW) Urine Appearance (CLEAR) Urine pH (5.0-8.0) Ur Specific [place] (1.008-1.030) Urine Protein (NEGATIVE) mg/dL Urine Glucose (UA) (NEGATIVE) mg/dL Urine Ketones (NEGATIVE) mg/dL Urine Occult Blood (NEGATIVE) Urine Nitrite (NEGATIVE) Urine Bilirubin (NEGATIVE) Urine Urobilinogen (0.2-1.0) EU/dL Ur Leukocyte Esterase (NEGATIVE) Urine RBC (0-5) Urine WBC (0-5) Ur Epithelial Cells Amorphous Sediment Urine Bacteria Urine Mucus Ethyl Alcohol mg/dL Blood Type Gel Antibody Screen Crossmatch Med Orders - Current: Current Medications Acetaminophen (Tylenol) 650 mg PO Q4H PRN PRN Reason: Pain (Mild 1-3)/fever Albuterol (Proventil Neb Soln) 2.5 mg NEB Q4H PRN PRN Reason: Shortness Of Breath/wheezing Albuterol/Ipratropium (Duoneb 3.0-0.5 Mg/3 Ml) 3 ml NEB QIDRT [facility] Last Admin: 12/07/19 07:34 Dose: 3 ml Atorvastatin Calcium (Lipitor) 40 mg PO DAILY [facility] Last Admin: 12/07/19 08:52 Dose: 40 mg Bumetanide (Bumex) 2 mg IVPUSH Q12H [facility] Last Admin: 12/07/19 08:53 Dose: 2 mg Bupropion HCl (Wellbutrin Xl) 150 mg PO DAILY [facility] Last Admin: 12/07/19 08:53 Dose: 150 mg Carvedilol (Coreg) 6.25 mg PO BID [facility] Last Admin: 12/07/19 08:53 Dose: 6.25 mg Dextrose (Glutose 15) 15 gm PO ONETIME PRN PRN Reason: Hypoglycemia Dextrose/Water (Dextrose 50% In Water) 50 ml IV ONETIME PRN PRN Reason: Hypoglycemia Duloxetine HCl (Cymbalta) 30 mg PO DAILY [facility] Last Admin: 12/07/19 08:52 Dose: 30 mg Enoxaparin Sodium (Lovenox) 40 mg SUBCUT BEDTIME [facility] Insulin Glargine (Lantus Solostar) 10 units SUBCUT DAILY [facility] Last Admin: 12/07/19 08:50 Dose: 10 units Insulin Human Lispro (Humalog) 0 unit SUBCUT QIDACANDBED [facility]; Protocol Last Admin: 12/07/19 07:54 Dose: 1 unit Lisinopril (Prinivil) 5 mg PO DAILY [facility] Last Admin: 12/07/19 08:52 Dose: 5 mg Nortriptyline HCl (Nortriptyline) 20 mg PO BEDTIME [facility] Ondansetron HCl (Zofran) 4 mg IV Q4H PRN PRN Reason: Nausea/Vomiting Pantoprazole Sodium (Protonix) 40 mg PO BID [facility] Last Admin: 12/07/19 08:52 Dose: 40 mg Polyethylene Glycol (Miralax) 17 gm PO DAILY PRN PRN Reason: Constipation Pregabalin (Lyrica) 50 mg PO BID [facility] Last Admin: 12/07/19 08:52 Dose: 50 mg Sodium Chloride (Saline Flush) 10 ml FLUSH ASDIRECTED PRN PRN Reason: Keep Vein Open Discontinued Medications Albuterol (Proventil Neb Soln) 2.5 mg NEB ONETIME ONE Stop: 12/06/19 15:11 Last Admin: 12/06/19 15:15 Dose: 2.5 mg Bumetanide (Bumex) 2 mg IVPUSH Q12H [facility] Last Admin: 12/06/19 20:24 Dose: 2 mg Enoxaparin Sodium (Lovenox) 40 mg SUBCUT DAILY [facility] Last Admin: 12/06/19 19:10 Dose: 40 mg Furosemide (Lasix) 60 mg IVPUSH ONETIME ONE Stop: 12/06/19 15:35 Last Admin: 12/06/19 15:48 Dose: 60 mg Ceftriaxone Sodium 1 gm/ (Sodium Chloride) 50 mls @ 100 mls/hr IV Q24H [facility] Last Admin: 12/06/19 18:54 Dose: 100 mls/hr Doxycycline Hyclate 100 mg/ (Sodium Chloride) 100 mls @ 100 mls/hr IV Q12H [facility] Last Admin: 12/06/19 20:23 Dose: 100 mls/hr Sodium Chloride (Normal Saline) Confirm Administered Dose 50 mls @ as directed .ROUTE .STK-MED ONE Stop: 12/06/19 18:51 Last Admin: 12/06/19 21:43 Dose: Not Given Doxycycline Hyclate 100 mg/ (Sodium Chloride) 100 mls @ 100 mls/hr IV Q12H [facility] Nortriptyline HCl (Nortriptyline) 20 mg PO BEDTIME [facility] Last Admin: 12/06/19 23:34 Dose: Not Given Nortriptyline HCl (Nortriptyline) 25 mg PO BEDTIME [facility] Last Admin: 12/07/19 00:22 Dose: Not Given Sodium Chloride (Saline Flush) 10 ml FLUSH ASDIRECTED PRN PRN Reason: Keep Vein Open Last Admin: 12/06/19 15:50 Dose: 10 ml - Exam General: Alert, Oriented, Cooperative, Mild Distress Lungs: Clear to Auscultation, Normal Respiratory Effort, Decreased Breath Sounds. No: Rales, Rhonchi, Wheezing Cardiovascular: Regular Rate, Regular Rhythm, No Murmurs GI/Abdominal Exam: Soft, Non-Tender, No Organomegaly, No Distention Extremities: Non-Tender, Pedal Edema Skin: Warm, Dry, Intact Sepsis Event Note - Evaluation Sepsis Screening Result: No Definite Risk - Focused Exam Vital Signs: Vital Signs Temp Temp Pulse Pulse Resp BP BP 12/07/19 08:53 88 134/74 12/07/19 08:52 134/74 12/07/19 07:49 97.3 F 88 16 134/74 12/07/19 07:35 89 12/07/19 07:13 12/07/19 04:00 97.6 F 88 16 122/62 12/07/19 01:02 12/07/19 00:39 98.3 F 98 16 136/76 12/07/19 00:30 98.3 F 98 16 12/07/19 00:00 99.0 F 98 16 133/76 12/06/19 23:30 98.4 F 100 16 136/77 12/06/19 23:00 96.9 F 98 16 135/78 12/06/19 22:27 98.4 F 102 H 18 134/70 12/06/19 22:15 98.4 F 100 16 138/73 12/06/19 22:00 97.8 F 102 H 16 126/66 12/06/19 21:49 97.8 F 102 H 16 132/69 Pulse Ox Pulse Ox 12/07/19 08:53 12/07/19 08:52 12/07/19 07:49 95 12/07/19 07:35 94 L 12/07/19 07:13 94 L 12/07/19 04:00 91 L 12/07/19 01:02 96 12/07/19 00:39 94 L 12/07/19 00:30 93 L 12/07/19 00:00 90 L 12/06/19 23:30 12/06/19 23:00 90 L 12/06/19 22:27 12/06/19 22:15 89 L 12/06/19 22:00 90 L 12/06/19 21:49 91 L Date Exam was Performed: 12/07/19 Time Exam was Performed: 09:11 - Problem List Review Problem List Initiated/Reviewed/Updated: Yes - My Orders Last 24 Hours: My Active Orders 12/06/19 16:41 Resuscitation Status Routine 12/06/19 18:01 Patient Status [ADT] Routine Ambulate [RC] QID Blood Glucose Check, Bedside [RC] QIDACANDBED Cardiac Monitoring [RC] .As Directed Diabetes Education [RC] Click to Edit Height and Weight [RC] 0500 Intake and Output [RC] QSHIFT Notify Provider Vital Signs [RC] ASDIRECTED Notify Provider [RC] PRN Oxygen Therapy [RC] PRN Pulse Oximetry [RC] CONTINUOUS RT Aerosol Therapy [RC] ASDIRECTED Up With Assistance [RC] ASDIRECTED Up to Chair [RC] QID VTE/DVT Education [RC] Per Unit Routine Vital Signs [RC] Q4H Acetaminophen [Tylenol] 650 mg PO Q4H PRN Albuterol [Proventil Neb Soln] 2.5 mg NEB Q4H PRN Dextrose 50% in Water 50 ml IV ONETIME PRN Dextrose [Glutose 15] 15 gm PO ONETIME PRN Insulin Lispro [HumaLOG] See Protocol SUBCUT QIDACANDBED Ondansetron [Zofran] 4 mg IV Q4H PRN Sodium Chloride 0.9% [Saline Flush] 10 ml FLUSH ASDIRECTED PRN polyethylene glycoL 3350 [MiraLAX] 17 gm PO DAILY PRN Blood Culture x2 Reflex Set [OM.PC] Urgent Saline Lock Insert [OM.PC] Routine Transfuse Red Blood Cells [COMM] Urgent 12/06/19 18:05 Notify Provider Consults [RC] ASDIRECTED 12/06/19 18:10 CULTURE BLOOD [BC] Stat 12/06/19 18:20 CULTURE BLOOD [BC] Stat 12/06/19 21:00 Albuterol/Ipratropium [DuoNeb 3.0-0.5 MG/3 ML] 3 ml NEB QIDRT Pantoprazole [ProTONIX] 40 mg PO BID Pregabalin [Lyrica] 50 mg PO BID carvediloL [Coreg] 6.25 mg PO BID 12/06/19 Lunch 2 Gram Sodium Diet [DIET] Consistent Carbohydrate Diet [DIET] 12/07/19 09:00 Bumetanide [Bumex] 2 mg IVPUSH Q12H DULoxetine [Cymbalta] 30 mg PO DAILY Insulin Glarg,Human.Rec.Analog [LantUS Solostar] 10 units SUBCUT DAILY atorvaSTATin [Lipitor] 40 mg PO DAILY buPROPion [Wellbutrin XL] 150 mg PO DAILY lisinopriL [Prinivil] 5 mg PO DAILY 12/07/19 11:30 GLUCOSE POC LAB TO COLLECT [POC] QIDACANDBED 12/07/19 16:30 GLUCOSE POC LAB TO COLLECT [POC] QIDACANDBED 12/07/19 21:00 GLUCOSE POC LAB TO COLLECT [POC] QIDACANDBED Enoxaparin [Lovenox] 40 mg SUBCUT BEDTIME 12/08/19 05:00 BASIC METABOLIC PANEL,BMP [CHEM] Timed 12/08/19 07:30 GLUCOSE POC LAB TO COLLECT [POC] QIDACANDBED 12/08/19 11:30 GLUCOSE POC LAB TO COLLECT [POC] QIDACANDBED 12/08/19 16:30 GLUCOSE POC LAB TO COLLECT [POC] QIDACANDBED 12/08/19 21:00 GLUCOSE POC LAB TO COLLECT [POC] QIDACANDBED 12/09/19 07:30 GLUCOSE POC LAB TO COLLECT [POC] QIDACANDBED 12/09/19 11:30 GLUCOSE POC LAB TO COLLECT [POC] QIDACANDBED 12/09/19 16:30 GLUCOSE POC LAB TO COLLECT [POC] QIDACANDBED 12/09/19 21:00 GLUCOSE POC LAB TO COLLECT [POC] QIDACANDBED 12/10/19 07:30 GLUCOSE POC LAB TO COLLECT [POC] QIDACANDBED 12/10/19 11:30 GLUCOSE POC LAB TO COLLECT [POC] QIDACANDBED 12/10/19 16:30 GLUCOSE POC LAB TO COLLECT [POC] QIDACANDBED 12/10/19 21:00 GLUCOSE POC LAB TO COLLECT [POC] QIDACANDBED 12/11/19 07:30 GLUCOSE POC LAB TO COLLECT [POC] QIDACANDBED 12/11/19 11:30 GLUCOSE POC LAB TO COLLECT [POC] QIDACANDBED 12/11/19 16:30 GLUCOSE POC LAB TO COLLECT [POC] QIDACANDBED - Plan Plan:: ASSESSMENT AND PLAN ACUTE ON CHRONIC SYSTOLIC CONGESTIVE HEART FAILURE-history of severely decreased left ventricular systolic ejection fraction -2 g sodium diet -Bumex 2 mg IV every 12 hours -Reassess in a.m. PATCHY BILATERAL PULMONARY INFILTRATES-the scan was obtained after admission and determined that infiltrates appeared to be more consistent with fluid then inflammation or infection. -Blood cultures pending -Discontinue doxycycline and ceftriaxone TYPE 2 DIABETES MELLITUS -Continue usual dose of long-acting insulin -4 times daily glucometers -Low-dose sliding scale Humalog CHRONIC KIDNEY DISEASE STAGE III-renal function has remained stable thus far -Closely monitor urine output and renal function with diuresis CHRONIC ANEMIA-given her severe heart failure we will plan transfusion of 1 unit of red blood cells -Transfuse 1 unit of RBCs -Reassess hemoglobin in a.m. MAINTENANCE ISSUES -DVT prophylaxis; Lovenox 40 mg subcu daily -GI prophylaxis; not indicated -Haider catheter; not indicated -Nutrition; 2 g sodium consistent carb diet -Nicotine dependence; not required CODE STATUS-FULL CODE ADMISSION STATUS-patient will be admitted to inpatient status, expect at least a 2 night hospital stay for evaluation and management of problems as outlined above. At the time of this admission I do not reasonably expected evaluation and management of this problem will require more than a 96 hour hospital stay. DISPOSITION-anticipate discharge to home after the hospital stay. PRIMARY CARE PROVIDER-
[2019-12-07] MEDS ORDERED: Nortriptyline 10 MG Cap PO SCH (21:00)
[2019-12-07] MEDS ORDERED: Enoxaparin 40 MG/0.4 ML Syringe SUBCUT SCH (21:00)
[2019-12-08] MEDS: Albuterol/Ipratropium 3.0-0.5 MG/3 ML Neb Soln NEB SCH ×2 (07:05→11:31)
[2019-12-08] MEDS: Insulin Lispro 100 Unit/ML 3 ML KwikPen SUBCUT SCH (07:44)
[2019-12-08] MEDS: Bumetanide 2.5 MG/10 ML MDV IVPUSH SCH (08:59)
[2019-12-08] MEDS: Carvedilol 6.25 MG Tab PO SCH (09:00)
[2019-12-08] MEDS: atorvaSTATin 20 MG Tab PO SCH (09:01)
[2019-12-08] MEDS: DULoxetine 30 MG Cap PO SCH (09:01)
[2019-12-08] MEDS: buPROPion 150 MG Tab.ER PO SCH (09:02)
[2019-12-08] MEDS: Pantoprazole 40 MG Tab.CR PO SCH (09:02)
[2019-12-08] MEDS: Pregabalin 50 MG Cap PO SCH (09:10)
[2019-12-08] MEDS: Insulin Glargine,Human Rec. Analog 100 Units/ML 3 ML Pen SUBCUT SCH (09:11)
--- NOTE | 2019-12-08 09:25 | PCM.DCSUM1 ---
Discharge Summary - Hospital Course Brief History: Ms. Sheppard is a 59-year-old woman who was admitted through the emergency department with increased shortness of breath and pulmonary edema secondary to acute on chronic congestive heart failure exacerbation. - Discharge Data Discharge Date: 12/08/19 Discharge Disposition: Home, Self-Care 01 Condition: Stable - Referral to Home Health Primary Care Physician: PCP None - Discharge Diagnosis/Problem(s) (1) Acute on chronic systolic and diastolic heart failure, NYHA class 3 SNOMED Code(s): 585139170311013, 296527844428065 ICD Code: I50.43 - ACUTE ON CHRONIC COMBINED SYSTOLIC AND DIASTOLIC HRT FAIL Status: Acute Current Visit: Yes (2) Fluid overload SNOMED Code(s): 72402591 ICD Code: E87.70 - FLUID OVERLOAD, UNSPECIFIED Status: Acute Current Visit: Yes (3) CKD (chronic kidney disease) stage 3, GFR 30-59 ml/min SNOMED Code(s): 744909931 ICD Code: N18.3 - CHRONIC KIDNEY DISEASE, STAGE 3 (MODERATE) Status: Acute Current Visit: Yes - Patient Summary/Data Hospital Course: Ms. Sheppard is a 59-year-old woman who was admitted through the emergency department with shortness of breath secondary to acute on chronic systolic congestive heart failure and pulmonary infiltrates. She reports that she had been doing well until a few days ago when she began to develop peripheral edema and then significant shortness of breath over the last 24 hours. On presentation to the emergency department she had a mild elevation in her respiratory rate, but was not hypoxic. White blood cell count is modestly elevated and there is marked elevation in her BNP. She has chronic kidney disease stage III as well as type 2 diabetes mellitus. Chest x-ray shows patchy bilateral infiltrates more consistent with inflammation/infection than fluid. She has a known history of severe congestive heart failure with estimated systolic ejection fraction of 10%. Denies recent fever, chills, or sweats and has not had a productive cough. CT scan of the chest was obtained after admission to further define changes noted on chest x-ray. CT scan was felt to be more consistent with fluid rather than underlying infection or inflammation. She was started on Bumex 2 mg IV twice daily throughout her hospital stay and experienced a good diuresis with good improvement in her shortness of breath as well as peripheral edema. Glucose levels were monitored throughout her hospital stay and she was continued on her usual dose of long- acting insulin. Low-dose sliding scale Humalog was used to also manage her diabetes. Follow-up appointment will be scheduled with her primary care provider within 1 week. Laboratory tests with a BMP should be obtained first part of next week. Activity will be as tolerated and she will be on a diabetic low-sodium diet. She has been instructed to monitor her weights daily and if her weight goes up 3 to 4 pounds over a few days she should contact her primary care provider. She will be discharged home on new diuretic therapy with Bumex 2 mg p.o. twice daily, furosemide will be discontinued. - Patient Instructions Diet: Low Sodium, Diabetic Diet Activity: As Tolerated Other/Special Instructions: Please schedule follow-up appointment with primary care provider within 1 week. Follow-up laboratory tests with a BMP should be obtained early next week. Patient should weigh herself daily and if she notes a weight gain of 3 to 4 pounds over a few days should contact her primary care provider. - Discharge Plan *PRESCRIPTION DRUG MONITORING PROGRAM REVIEWED*: Not Applicable *COPY OF PRESCRIPTION DRUG MONITORING REPORT IN PATIENT AGUSTO: Not Applicable Prescriptions/Med Rec: Bumetanide [Bumex] 2 mg PO BID #60 tab Home Medications: Home Meds Baclofen 10 mg PO TID 08/21/19 [History] buPROPion HCl [Wellbutrin Xl] 150 mg PO DAILY 08/21/19 [History] Albuterol Sulfate [Proair Respiclick] 2 puff IH QID 09/25/19 [History] Albuterol [Proventil Neb Soln] 2.5 mg .XX QID 09/25/19 [History] Albuterol/Ipratropium [DuoNeb 3.0-0.5 MG/3 ML] 3 ml .XX QID 09/25/19 [History] DULoxetine HCl [Cymbalta] 30 mg PO DAILY 09/25/19 [History] Ferrous Gluconate 1 tab PO DAILY 09/25/19 [History] Insulin Detemir [Levemir Flextouch] 10 units SUBCUT DAILY 09/25/19 [History] Nortriptyline 20 mg PO BEDTIME 09/25/19 [History] Pantoprazole Sodium [Protonix] 40 mg PO BID 09/25/19 [History] atorvaSTATin [Lipitor] 40 mg PO DAILY 09/25/19 [History] carvediloL [Carvedilol] 6.25 mg PO BID 09/25/19 [History] lisinopriL [Lisinopril] 5 mg PO DAILY 09/25/19 [History] Pregabalin [Lyrica] 50 mg PO BID 12/06/19 [History] Bumetanide [Bumex] 2 mg PO BID #60 tab 12/08/19 [Rx] Insulin Aspart [NovoLOG] 4 units SUBCUT TID #0 12/08/19 [Rx] Referrals: Codie Farmer NP [Ordering Only Provider] - - Discharge Summary/Plan Comment DC Time >30 min.: No - Patient Data Vitals - Most Recent: Last Vital Signs Temp 96.8 F L 12/08/19 07:48 Pulse 88 12/08/19 09:00 Resp 14 12/08/19 07:48 BP 120/52 L 12/08/19 09:00 Pulse Ox 97 12/08/19 07:48 Weight - Most Recent: 180 lb 9.6 oz Lab Results - Last 24 hrs: Laboratory Results - last 24 hr 12/08/19 Range/Units 04:38 Sodium 144 (140-148) mmol/L Potassium 4.1 (3.6-5.2) mmol/L Chloride 106 (100-108) mmol/L Carbon Dioxide 33 H (21-32) mmol/L Anion Gap 9.1 (5.0-14.0) mmol/L BUN 41 H (7-18) mg/dL Creatinine 1.8 H (0.6-1.0) mg/dL Est Cr Clr Drug Dosing 35.47 mL/min Estimated GFR (MDRD) 29 L (>60) Glucose 94 (74-106) mg/dL Calcium 8.1 L (8.5-10.1) mg/dL DEANDRE Results - Last 24 hrs: Microbiology 12/06/19 18:20 Aerobic Blood Culture - Preliminary Blood - Arm, Left NO GROWTH AFTER 1 DAY Anaerobic Blood Culture - Preliminary NO GROWTH AFTER 1 DAY 12/06/19 18:10 Aerobic Blood Culture - Preliminary Blood - Arm, Left NO GROWTH AFTER 1 DAY Anaerobic Blood Culture - Preliminary NO GROWTH AFTER 1 DAY Med Orders - Current: Current Medications Acetaminophen (Tylenol) 650 mg PO Q4H PRN PRN Reason: Pain (Mild 1-3)/fever Last Admin: 12/07/19 20:25 Dose: 650 mg Albuterol (Proventil Neb Soln) 2.5 mg NEB Q4H PRN PRN Reason: Shortness Of Breath/wheezing Albuterol/Ipratropium (Duoneb 3.0-0.5 Mg/3 Ml) 3 ml NEB QIDRT [facility] Last Admin: 12/08/19 07:05 Dose: 3 ml Atorvastatin Calcium (Lipitor) 40 mg PO DAILY [facility] Last Admin: 12/08/19 09:01 Dose: 40 mg Bumetanide (Bumex) 2 mg IVPUSH Q12H [facility] Last Admin: 12/08/19 08:59 Dose: 2 mg Bupropion HCl (Wellbutrin Xl) 150 mg PO DAILY [facility] Last Admin: 12/08/19 09:02 Dose: 150 mg Carvedilol (Coreg) 6.25 mg PO BID [facility] Last Admin: 12/08/19 09:00 Dose: 6.25 mg Dextrose (Glutose 15) 15 gm PO ONETIME PRN PRN Reason: Hypoglycemia Dextrose/Water (Dextrose 50% In Water) 50 ml IV ONETIME PRN PRN Reason: Hypoglycemia Duloxetine HCl (Cymbalta) 30 mg PO DAILY [facility] Last Admin: 12/08/19 09:01 Dose: 30 mg Enoxaparin Sodium (Lovenox) 40 mg SUBCUT BEDTIME [facility] Last Admin: 12/07/19 20:26 Dose: 40 mg Insulin Glargine (Lantus Solostar) 10 units SUBCUT DAILY [facility] Last Admin: 12/08/19 09:11 Dose: 10 units Insulin Human Lispro (Humalog) 0 unit SUBCUT QIDACANDBED [facility]; Protocol Last Admin: 12/08/19 07:44 Dose: Not Given Lisinopril (Prinivil) 5 mg PO DAILY [facility] Last Admin: 12/07/19 08:52 Dose: 5 mg Nortriptyline HCl (Nortriptyline) 20 mg PO BEDTIME [facility] Last Admin: 12/07/19 20:24 Dose: 20 mg Ondansetron HCl (Zofran) 4 mg IV Q4H PRN PRN Reason: Nausea/Vomiting Pantoprazole Sodium (Protonix) 40 mg PO BID [facility] Last Admin: 12/08/19 09:02 Dose: 40 mg Polyethylene Glycol (Miralax) 17 gm PO DAILY PRN PRN Reason: Constipation Pregabalin (Lyrica) 50 mg PO BID [facility] Last Admin: 12/08/19 09:10 Dose: 50 mg Sodium Chloride (Saline Flush) 10 ml FLUSH ASDIRECTED PRN PRN Reason: Keep Vein Open Discontinued Medications Albuterol (Proventil Neb Soln) 2.5 mg NEB ONETIME ONE Stop: 12/06/19 15:11 Last Admin: 12/06/19 15:15 Dose: 2.5 mg Bumetanide (Bumex) 2 mg IVPUSH Q12H [facility] Last Admin: 12/06/19 20:24 Dose: 2 mg Enoxaparin Sodium (Lovenox) 40 mg SUBCUT DAILY [facility] Last Admin: 12/06/19 19:10 Dose: 40 mg Furosemide (Lasix) 60 mg IVPUSH ONETIME ONE Stop: 12/06/19 15:35 Last Admin: 12/06/19 15:48 Dose: 60 mg Ceftriaxone Sodium 1 gm/ (Sodium Chloride) 50 mls @ 100 mls/hr IV Q24H [facility] Last Admin: 12/06/19 18:54 Dose: 100 mls/hr Doxycycline Hyclate 100 mg/ (Sodium Chloride) 100 mls @ 100 mls/hr IV Q12H [facility] Last Admin: 12/06/19 20:23 Dose: 100 mls/hr Sodium Chloride (Normal Saline) Confirm Administered Dose 50 mls @ as directed .ROUTE .STK-MED ONE Stop: 12/06/19 18:51 Last Admin: 12/06/19 21:43 Dose: Not Given Doxycycline Hyclate 100 mg/ (Sodium Chloride) 100 mls @ 100 mls/hr IV Q12H [facility] Nortriptyline HCl (Nortriptyline) 20 mg PO BEDTIME [facility] Last Admin: 12/06/19 23:34 Dose: Not Given Nortriptyline HCl (Nortriptyline) 25 mg PO BEDTIME [facility] Last Admin: 12/07/19 00:22 Dose: Not Given Sodium Chloride (Saline Flush) 10 ml FLUSH ASDIRECTED PRN PRN Reason: Keep Vein Open Last Admin: 12/06/19 15:50 Dose: 10 ml - Exam Quality Assessment: Reports: DVT Prophylaxis General: Reports: Alert, Oriented, Cooperative, No Acute Distress Lungs: Reports: Clear to Auscultation, Normal Respiratory Effort Cardiovascular: Reports: Regular Rate, Regular Rhythm, No Murmurs GI/Abdominal Exam: Soft, Non-Tender, No Organomegaly, No Distention Extremities: Non-Tender, No Pedal Edema
[2019-12-08 10:38] VITALS: BP 123/64; PULSE 84
== END 2019-12-08 11:05 | disposition home or self-care (01) | DRG 291 ==
LOC: JP.ED 13:08 → JP.MS 16:38
PROVIDERS: ADMIT Hospitalist; ATTEND Hospitalist
PROC: 30233N1 Transfusion of Nonautologous Red Blood Cells into Peripheral Vein, Percutaneous Approach (ICD-10-PCS; principal; 2019-12-06)
DX: J18.9 Pneumonia, unspecified organism (principal); E87.70 Fluid overload, unspecified; I13.0 Hypertensive heart and chronic kidney disease with heart failure and stage 1 through stage 4 chronic kidney disease, or unspecified chronic kidney disease; E61.1 Iron deficiency; H54.7 Unspecified visual loss; E78.00 Pure hypercholesterolemia, unspecified; I10 Essential (primary) hypertension; J44.9 Chronic obstructive pulmonary disease, unspecified; Z87.01 Personal history of pneumonia (recurrent); E11.40 Type 2 diabetes mellitus with diabetic neuropathy, unspecified; G89.29 Other chronic pain; M54.9 Dorsalgia, unspecified; I50.43 Acute on chronic combined systolic (congestive) and diastolic (congestive) heart failure; M06.9 Rheumatoid arthritis, unspecified; Z89.422 Acquired absence of other left toe(s); N18.3 Chronic kidney disease, stage 3 (moderate); E11.22 Type 2 diabetes mellitus with diabetic chronic kidney disease; E11.42 Type 2 diabetes mellitus with diabetic polyneuropathy; D64.9 Anemia, unspecified; Z88.1 Allergy status to other antibiotic agents; F41.9 Anxiety disorder, unspecified; F32.9 Major depressive disorder, single episode, unspecified; M19.90 Unspecified osteoarthritis, unspecified site; Z79.4 Long term (current) use of insulin; Z79.899 Other long term (current) drug therapy; Z88.0 Allergy status to penicillin; Z88.8 Allergy status to other drugs, medicaments and biological substances; Z87.891 Personal history of nicotine dependence
CPT/HCPCS: 36415; 36430; 36600; 71046; 71250; 80048; 80053; 80307; 81001; 82803; 82962; 83550; 83735; 83880; 84145; 85025; 86850; 86900; 86901; 86920; 86922; 87040; 94640; 94762; 96374; 99285-25; A9270-GY; J0696; J1650; J1815; J1815-GY; J1940; J3490; J7050; J7620-GY; P9016

== ENCOUNTER 2020-01-12 16:02 | Emergency (ER) | payer MEDICARE, MEDICAID ==
[2020-01-12] MEDS ORDERED: Furosemide 40 MG/4 ML VIAL IVPUSH ONE (16:15)
--- NOTE | 2020-01-12 16:21 | EDM.PDOC ---
ED HPI GENERAL MEDICAL PROBLEM - General Chief Complaint: Cardiovascular Problem Stated Complaint: [facility] Time Seen by Provider: 01/12/20 16:05 Source of Information: Reports: Patient, EMS, Old Records History Limitations: Reports: No Limitations - History of Present Illness INITIAL COMMENTS - FREE TEXT/NARRATIVE: 59 yo NA female with a pHx of CHF/CRF and who is on home oxygen @ 3 liters/min/ nc presents via EMS with weight gain, leg edema, and orthopnea getting worse for the past several days. Has a home health nurse that visits. Has only been having telemedicine visits with her primary at [facility]. Denies fever or chest pain. EMS reduced her oxygen to 2 liters/min en route due to oxygen levels that were elevated. Onset: Gradual Duration: Day(s):, Getting Worse Location: Reports: Chest, Lower Extremity, Left, Lower Extremity, Right Quality: Reports: Other (no pain reported) Severity: Mild Improves with: Reports: Rest, Other (sitting up) Worsens with: Reports: Movement (exertion or lying flat) Context: Reports: Other (See HPI) Associated Symptoms: Reports: Shortness of Breath. Denies: Chest Pain, Cough, Fever/Chills, Nausea/Vomiting Treatments BACTERIOLOGIST SOIL: Reports: Other (see below) (none) - Related Data Allergies Allergy/AdvReac Type Severity Reaction Status Date / Time acyclovir [From Zovirax] Allergy Hives Verified 01/12/20 16:05 acyclovir sodium Allergy Hives Verified 01/12/20 16:05 [From Zovirax] amoxicillin [Amoxicillin] Allergy Hives Verified 01/12/20 16:05 Home Meds: Home Meds Baclofen 10 mg PO TID 08/21/19 [History] buPROPion HCL [Wellbutrin Xl] 150 mg PO DAILY 08/21/19 [History] Albuterol [Proventil Neb Soln] 2.5 mg .XX QID 09/25/19 [History] DULoxetine HCl [Cymbalta] 30 mg PO DAILY 09/25/19 [History] Ferrous Gluconate 1 tab PO DAILY 09/25/19 [History] Nortriptyline 20 mg PO BEDTIME 09/25/19 [History] atorvaSTATin [Lipitor] 40 mg PO DAILY 09/25/19 [History] carvediloL [Carvedilol] 6.25 mg PO BID 09/25/19 [History] Pregabalin [Lyrica] 50 mg PO BID 12/06/19 [History] Bumetanide [Bumex] 2 mg PO BID #60 tab 12/08/19 [Rx] Insulin Aspart [NovoLOG] 4 units SUBCUT TID #0 12/08/19 [Rx] Ergocalciferol (Vitamin D2) [Vitamin D2] 50,000 unit PO ASDIRECTED 01/12/20 [ History] Furosemide [Lasix] 40 mg PO BID 01/12/20 [History] Past Medical History HEENT History: Reports: Impaired Vision Other HEENT History: tooth extractions, broken teeth Cardiovascular History: Reports: High Cholesterol, Hypertension, Other (See Below) Other Cardiovascular History: CHF Respiratory History: Reports: COPD, Pneumonia, Recurrent Gastrointestinal History: Reports: Chronic Constipation Genitourinary History: Reports: Diabetic Nephropathy Other Genitourinary History: kidney failure WHEEL [employer]ER History: Reports: Musculoskeletal History: Reports: Amputation, Back Pain, Chronic, Fibromyalgia, Osteoarthritis, RA Other Musculoskeletal History: 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 Neurological History: Reports: Migraines Psychiatric History: Reports: Anxiety, Depression Endocrine/Metabolic History: Reports: Diabetes, Type II Hematologic History: Reports: Other (See Below) - Infectious Disease History Infectious Disease History: Reports: Chicken Pox, Shingles - Past Surgical History Head Surgeries/Procedures: Reports: None HEENT Surgical History: Reports: Adenoidectomy, Tonsillectomy Cardiovascular Surgical History: Reports: None Respiratory Surgical History: Reports: None GI Surgical History: Reports: EGD Female Surgical History: Reports: None Endocrine Surgical History: Reports: None Neurological Surgical History: Reports: None Musculoskeletal Surgical History: Reports: Amputation Social & Family History - Family History Family Medical History: Noncontributory - Tobacco Use Smoking Status *Q: Former Smoker Used Tobacco, but Quit: Yes Month/Year Tobacco Last Used: 2017 Second Hand Smoke Exposure: Yes - Caffeine Use Caffeine Use: Reports: Coffee Other Caffeine Use: 2 cups per day, occassionally diet pepsi Caffeine Use Comment: 1-2 cups of coffee - Recreational Drug Use Recreational Drug Use: No - Living Situation & Occupation Living situation: Reports: Single Occupation: Disabled ED ROS GENERAL - Review of Systems Review Of Systems: See Below Constitutional: Reports: No Symptoms. Denies: Fever, Chills, Diaphoresis HEENT: Reports: No Symptoms Respiratory: Reports: Shortness of Breath. Denies: Wheezing, Pleuritic Chest Pain, Cough, Sputum, Hemoptysis Cardiovascular: Reports: Dyspnea on Exertion, Edema (both legs), Orthopnea. Denies: Chest Pain, Blood Pressure Problem, Palpitations Endocrine: Reports: No Symptoms GI/Abdominal: Reports: No Symptoms : Reports: No Symptoms Musculoskeletal: Reports: No Symptoms Skin: Reports: No Symptoms Neurological: Reports: No Symptoms Psychiatric: Reports: No Symptoms ED EXAM, GENERAL - Physical Exam Exam: See Below Exam Limited By: No Limitations General Appearance: Alert, WD/WN, No Apparent Distress Eye Exam: Bilateral Eye: Normal Inspection Ears: Normal External Exam, Normal Canal, Hearing Grossly Normal Ear Exam: Bilateral Ear: Auricle Normal, Canal Normal Nose: Normal Inspection, No Blood Throat/Mouth: Normal Inspection, Normal Lips, Normal Oropharynx, Normal Voice, No Airway Compromise Head: Atraumatic, Normocephalic Neck: Normal Inspection Respiratory/Chest: No Respiratory Distress, No Accessory Muscle Use, Rales (at both bases only.). No: Lungs Clear, Normal Breath Sounds, Rhonchi, Wheezing, Accessory Muscle Use Cardiovascular: Regular Rate, Rhythm, No Edema GI/Abdominal: Normal Bowel Sounds, Soft, Non-Tender, No Distention Back Exam: Normal Inspection. No: CVA Tenderness (R), CVA Tenderness (L) Extremities: Normal Inspection, Normal Range of Motion, Non-Tender, Pedal Edema (2+ both LE's below the knees.), Other (Toes on L foot have been amputed surgically.). No: No Pedal Edema, Leg Pain, Redness Neurological: Alert, Oriented, CN II-XII Intact, Normal Cognition, No Motor/ Sensory Deficits Psychiatric: Normal Affect, Normal Mood Skin Exam: Warm, Dry, Intact, Normal Color, No Rash Course - Vital Signs Last Recorded V/S: Last Vital Signs Temp 37.2 C 01/12/20 16:12 Pulse 87 01/12/20 17:02 Resp 16 01/12/20 17:02 BP 132/76 01/12/20 17:02 Pulse Ox 94 L 01/12/20 17:02 - Orders/Labs/Meds Labs: Laboratory Tests 01/12/20 01/12/20 Range/Units 16:21 16:21 WBC 10.9 (4.5-11.0) K/uL RBC 3.33 (3.30-5.50) M/uL Hgb 8.0 L (12.0-15.0) g/dL Hct 27.6 L (36.0-48.0) % MCV 83 (80-98) fL MCH 24 L (27-31) pg MCHC 29 L (32-36) % Plt Count 387 (150-400) K/uL Sodium 136 L (140-148) mmol/L Potassium 4.3 (3.6-5.2) mmol/L Chloride 97 L (100-108) mmol/L Carbon Dioxide 34 H (21-32) mmol/L Anion Gap 9.3 (5.0-14.0) mmol/L BUN 36 H (7-18) mg/dL Creatinine 1.9 H (0.6-1.0) mg/dL Est Cr Clr Drug Dosing 33.73 mL/min Estimated GFR (MDRD) 27 L (>60) Glucose 183 H (74-106) mg/dL Calcium 8.2 L (8.5-10.1) mg/dL Troponin I < 0.017 (0.000-0.056) ng/mL Meds: Medications Discontinued Medications Generic Name Dose Route Start Last Admin Trade Name Juve PRN Reason Stop Dose Admin Furosemide 80 mg 01/12/20 16:15 01/12/20 16:26 Lasix IVPUSH 01/12/20 16:16 80 mg ONETIME ONE Administration - Re-Assessments/Exams Free Text/Narrative Re-Assessment/Exam: 01/12/20 17:52 Is breathing better after furosemide 80 mg IV, able to lie nearly flat with no SOB. Departure - Departure Time of Disposition: 18:00 Disposition: Home, Self-Care 01 Condition: Fair Clinical Impression: Pulmonary edema Qualifiers: Chronicity: chronic Qualified Code(s): J81.1 - Chronic pulmonary edema Instructions: Heart Failure, [id number] Referrals: PCP,None [Primary Care Provider] - Forms: ED Department Discharge Additional Instructions: Continue present cares, except double your dose of furosemide in the mornings only for the next 2 days. Take your usual medication dosages at all other times. Avoid salt or salty foods. Discuss your breathing and your weight with your doctor each day until you are fully stabilized. Return as needed. Sepsis Event Note - Evaluation Sepsis Screening Result: No Definite Risk - Focused Exam Vital Signs: Vital Signs Temp Pulse Resp BP Pulse Ox 01/12/20 17:02 87 16 132/76 94 L 01/12/20 16:12 37.2 C 91 12 116/63 93 L 01/12/20 16:06 37.2 C 91 12 116/63 93 L Date Exam was Performed: 01/12/20 Time Exam was Performed: 17:52
[2020-01-12 17:52] VITALS: BP 138/76; PULSE 87
== END 2020-01-12 18:11 | disposition home or self-care (01) ==
LOC: JP.ED 16:02
DX: J81.1 Chronic pulmonary edema (principal); E78.00 Pure hypercholesterolemia, unspecified; I11.0 Hypertensive heart disease with heart failure; I50.9 Heart failure, unspecified; J44.9 Chronic obstructive pulmonary disease, unspecified; E11.21 Type 2 diabetes mellitus with diabetic nephropathy; F41.9 Anxiety disorder, unspecified; F32.9 Major depressive disorder, single episode, unspecified; Z79.899 Other long term (current) drug therapy; Z79.4 Long term (current) use of insulin; Z88.8 Allergy status to other drugs, medicaments and biological substances; Z87.891 Personal history of nicotine dependence
CPT/HCPCS: 36415; 80048; 84484; 85027; 96374; 99285; J1940; 99284

== ENCOUNTER 2020-03-15 12:56 | Emergency (ER) | payer MEDICARE, MEDICAID ==
[2020-03-15] MEDS ORDERED: Acetaminophen/oxyCODONE 325-5 MG Tab PO STA (13:27)
--- NOTE | 2020-03-15 13:33 | EDM.PDOC ---
ED HPI GENERAL MEDICAL PROBLEM - General Chief Complaint: Flank Pain Stated Complaint: FALL VIA NORTH AM Time Seen by Provider: 03/15/20 13:15 Source of Information: Reports: Patient, EMS, Old Records History Limitations: Reports: No Limitations - History of Present Illness INITIAL COMMENTS - FREE TEXT/NARRATIVE: 59 yo female fell last night in her home and hit the tub with her L flank area. Arrives via EMS. Thinks she is a little SOB. Patient took nothing for the pain. Onset: Today, Sudden Onset Date: 03/15/20 Onset Time: 01:00 Duration: Hour(s):, Constant Location: Reports: Chest (L post/lateral) Quality: Reports: Sharp Severity: Moderate Improves with: Reports: Rest Worsens with: Reports: Movement Context: Reports: Trauma Associated Symptoms: Reports: No Other Symptoms Treatments CAN PUSHER: Reports: Other (see below) (EMS administered medication) left side from fall Pain Score (Numeric/FACES): 10 - Related Data Allergies Allergy/AdvReac Type Severity Reaction Status Date / Time acyclovir [From Zovirax] Allergy Hives Verified 03/15/20 13:02 acyclovir sodium Allergy Hives Verified 03/15/20 13:02 [From Zovirax] amoxicillin [Amoxicillin] Allergy Hives Verified 03/15/20 13:02 Home Meds: Home Meds Baclofen 10 mg PO BID 08/21/19 [History] buPROPion HCL [Wellbutrin Xl] 150 mg PO DAILY 08/21/19 [History] Albuterol [Proventil Neb Soln] 2.5 mg .XX QID PRN 09/25/19 [History] DULoxetine HCl [Cymbalta] 30 mg PO DAILY 09/25/19 [History] Ferrous Gluconate 1 tab PO DAILY 09/25/19 [History] Nortriptyline 20 mg PO BEDTIME 09/25/19 [History] atorvaSTATin [Lipitor] 40 mg PO DAILY 09/25/19 [History] carvediloL [Carvedilol] 6.25 mg PO BID 09/25/19 [History] Pregabalin [Lyrica] 50 mg PO BID 12/06/19 [History] Insulin Aspart [NovoLOG] 4 units SUBCUT TID #0 12/08/19 [Rx] Ergocalciferol (Vitamin D2) [Vitamin D2] 50,000 unit PO ASDIRECTED 05/21/20 [History] Furosemide [Lasix] 80 mg PO BID 01/12/20 [History] Acetaminophen/HYDROcodone [Tanner 325-5 MG] 1 tab PO Q4H PRN #14 tab 03/15/20 [Rx] fentaNYL [Fentanyl] 12 mcg TOP Q72H #1 patch.td72 03/15/20 [Rx] Past Medical History HEENT History: Reports: Impaired Vision Other HEENT History: tooth extractions, broken teeth Cardiovascular History: Reports: High Cholesterol, Hypertension, Other (See Below) Other Cardiovascular History: CHF Respiratory History: Reports: COPD, Pneumonia, Recurrent Gastrointestinal History: Reports: Chronic Constipation Genitourinary History: Reports: Diabetic Nephropathy Other Genitourinary History: kidney failure 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: Musculoskeletal History: Reports: Amputation, Back Pain, Chronic, Fibromyalgia, Osteoarthritis, RA Other Musculoskeletal History: 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 Neurological History: Reports: Migraines Psychiatric History: Reports: Anxiety, Depression Endocrine/Metabolic History: Reports: Diabetes, Type II Hematologic History: Reports: Other (See Below) - Infectious Disease History Infectious Disease History: Reports: Chicken Pox, Shingles - Past Surgical History Head Surgeries/Procedures: Reports: None HEENT Surgical History: Reports: Adenoidectomy, Tonsillectomy Cardiovascular Surgical History: Reports: None Respiratory Surgical History: Reports: None GI Surgical History: Reports: EGD Female Surgical History: Reports: None Endocrine Surgical History: Reports: None Neurological Surgical History: Reports: None Musculoskeletal Surgical History: Reports: Amputation Social & Family History - Family History Family Medical History: Noncontributory - Tobacco Use Smoking Status *Q: Former Smoker Used Tobacco, but Quit: Yes Month/Year Tobacco Last Used: 2017 - Caffeine Use Caffeine Use: Reports: Coffee Other Caffeine Use: 2 cups per day, occassionally diet pepsi Caffeine Use Comment: 1-2 cups of coffee - Recreational Drug Use Recreational Drug Use: No - Living Situation & Occupation Living situation: Reports: Single Occupation: Disabled Review of Systems - Review of Systems Review Of Systems: See Below Constitutional: Reports: No Symptoms Genitourinary: Reports: No Symptoms Musculoskeletal: Reports: Back Pain (L flank area) Skin: Reports: No Symptoms Neurological: Reports: No Symptoms (nothing new) ED EXAM, GENERAL - Physical Exam Exam: See Below Exam Limited By: No Limitations General Appearance: Alert, WD/WN, No Apparent Distress Eye Exam: Bilateral Eye: Normal Inspection Ears: Normal External Exam, Normal Canal, Hearing Grossly Normal Ear Exam: Bilateral Ear: Auricle Normal, Canal Normal Nose: Normal Inspection, No Blood Throat/Mouth: Normal Inspection, Normal Lips, Normal Oropharynx, Normal Voice, No Airway Compromise Head: Atraumatic, Normocephalic Neck: Normal Inspection Respiratory/Chest: No Respiratory Distress, Lungs Clear, Normal Breath Sounds, No Accessory Muscle Use, Other (tenderness L flank without crepitus) Cardiovascular: Regular Rate, Rhythm, No Edema GI/Abdominal: Normal Bowel Sounds, Soft, Non-Tender, No Distention Back Exam: Normal Inspection. No: CVA Tenderness (R), CVA Tenderness (L) Extremities: Normal Inspection, Normal Range of Motion, Non-Tender, No Pedal Edema Neurological: Alert, Oriented, CN II-XII Intact, Normal Cognition, No Motor/Sensory Deficits Psychiatric: Normal Affect, Normal Mood Skin Exam: Warm, Dry, Intact, Normal Color, No Rash. No: Ecchymosis Course - Vital Signs Last Recorded V/S: Last Vital Signs Temp 36.6 C 03/15/20 13:14 Pulse 83 03/15/20 13:34 Resp 15 03/15/20 13:34 BP 120/70 03/15/20 13:34 Pulse Ox 97 03/15/20 13:34 - Orders/Labs/Meds Orders: Active Orders 24 hr Category Date Time Status Chest 2V [CR] Stat Exams 03/15/20 13:27 Taken UA W/MICROSCOPIC [URIN] Stat Lab 03/15/20 13:08 Ordered Meds: Medications Discontinued Medications Generic Name Dose Route Start Last Admin Trade Name Freq PRN Reason Stop Dose Admin Oxycodone/Acetaminophen 1 tab 03/15/20 13:27 03/15/20 13:33 Percocet 325-5 Mg PO 03/15/20 13:28 1 tab ONETIME STA Administration - Radiology Interpretation Free Text/Narrative:: CXR-no pneumo Departure - Departure Time of Disposition: 14:15 Disposition: Home, Self-Care 01 Condition: Fair Clinical Impression: Rib pain on left side - Discharge Information *PRESCRIPTION DRUG MONITORING PROGRAM REVIEWED*: No *COPY OF PRESCRIPTION DRUG MONITORING REPORT IN PATIENT AGUSTO: No Instructions: Chest Wall Pain Referrals: PCP,None [Primary Care Provider] - Forms: ED Department Discharge Additional Instructions: Use a new fentanyl patch to your skin in 72 hrs. Take Tanner OR acetaminophen for added relief. Recheck with your provider early next week. Take ample amounts of fiber in to prevent constipation from your pain medicines. Sepsis Event Note (ED) - Evaluation Sepsis Screening Result: No Definite Risk - Focused Exam Vital Signs: Vital Signs Temp Pulse Resp BP Pulse Ox 03/15/20 13:34 83 15 120/70 97 03/15/20 13:19 80 15 113/65 03/15/20 13:14 36.6 C 82 15 104/59 L 97 03/15/20 13:13 36.6 C 82 15 104/59 L 97 - My Orders Last 24 Hours: My Active Orders 03/15/20 13:08 UA W/MICROSCOPIC [URIN] Stat 03/15/20 13:27 Chest 2V [CR] Stat - Assessment/Plan Last 24 Hours: My Active Orders 03/15/20 13:08 UA W/MICROSCOPIC [URIN] Stat 03/15/20 13:27 Chest 2V [CR] Stat
[2020-03-15 13:34] VITALS: BP 120/70; PULSE 83
[2020-03-15] MEDS ORDERED: fentaNYL 12 MCG/HR Transdermal Patch TRDERM SCH (14:00)
--- NOTE | 2020-03-15 14:29 | CR ---
CHEST: 2 view CLINICAL HISTORY:Left rib pain after fall COMPARISON:November 2019 FINDINGS: Heart size and pulmonary vascularity are normal. There is some patchy density in the left lung base. This may represent some atelectasis or possibly scarring. The there was previous infiltrate and effusion on the November study. There are atherosclerotic changes in the aorta. Impression: No evidence of pneumothorax Patchy density at the left lung base. Some of this may be some atelectasis. The this may be residual scarring and pleural fluid or thickening which was seen to a greater degree in November 2019
== END 2020-03-15 14:53 | disposition home or self-care (01) ==
LOC: JP.ED 12:56
DX: R07.81 Pleurodynia (principal); F41.9 Anxiety disorder, unspecified; F32.9 Major depressive disorder, single episode, unspecified; E78.00 Pure hypercholesterolemia, unspecified; I11.0 Hypertensive heart disease with heart failure; I50.9 Heart failure, unspecified; J44.9 Chronic obstructive pulmonary disease, unspecified; E11.21 Type 2 diabetes mellitus with diabetic nephropathy; Z88.8 Allergy status to other drugs, medicaments and biological substances; Z88.1 Allergy status to other antibiotic agents; Z79.899 Other long term (current) drug therapy; Z79.4 Long term (current) use of insulin; Z87.891 Personal history of nicotine dependence
CPT/HCPCS: 71046; 81001; 99285; A9270

== ENCOUNTER 2020-04-23 21:25 | Emergency (ER) | payer MEDICARE, MEDICAID ==
--- NOTE | 2020-04-23 21:36 | EDM.PDOC ---
ED HPI GENERAL MEDICAL PROBLEM - General Chief Complaint: Lower Extremity Injury/Pain Stated Complaint: FELL RT KNEE PAIN Time Seen by Provider: 04/23/20 21:27 Source of Information: Reports: Patient History Limitations: Reports: No Limitations - History of Present Illness INITIAL COMMENTS - FREE TEXT/NARRATIVE: 59-year-old female presents the emergency department with a painful and injured right knee. The patient fell directly on the knee today. She has pain with movement however she is able to walk albeit with a limp. The patient is not taking [id number] medications. She is on chronic opiates for chronic pain. She denies any other injuries. She reports her tetanus booster is up-to-date. Right Knee Pain Score (Numeric/FACES): 9 - Related Data Allergies Allergy/AdvReac Type Severity Reaction Status Date / Time acyclovir [From Zovirax] Allergy Hives Verified 04/23/20 21:46 acyclovir sodium Allergy Hives Verified 04/23/20 21:46 [From Zovirax] amoxicillin [Amoxicillin] Allergy Hives Verified 04/23/20 21:46 Home Meds: Home Meds Baclofen 10 mg PO BID 08/21/19 [History] buPROPion HCL [Wellbutrin Xl] 150 mg PO DAILY 08/21/19 [History] Albuterol [Proventil Neb Soln] 2.5 mg .XX QID PRN 09/25/19 [History] DULoxetine HCl [Cymbalta] 30 mg PO DAILY 09/25/19 [History] Ferrous Gluconate 1 tab PO DAILY 09/25/19 [History] Nortriptyline 20 mg PO BEDTIME 09/25/19 [History] atorvaSTATin [Lipitor] 40 mg PO DAILY 09/25/19 [History] carvediloL [Carvedilol] 6.25 mg PO BID 09/25/19 [History] Pregabalin [Lyrica] 50 mg PO BID 12/06/19 [History] Insulin Aspart [NovoLOG] 4 units SUBCUT TID #0 12/08/19 [Rx] Ergocalciferol (Vitamin D2) [Vitamin D2] 50,000 unit PO ASDIRECTED 01/12/20 [History] Furosemide [Lasix] 80 mg PO BID 01/12/20 [History] fentaNYL [Fentanyl] 12 mcg TOP Q72H #1 patch.td72 03/15/20 [Rx] Past Medical History HEENT History: Reports: Impaired Vision Other HEENT History: tooth extractions, broken teeth Cardiovascular History: Reports: High Cholesterol, Hypertension, Other (See Below) Other Cardiovascular History: CHF Respiratory History: Reports: COPD, Pneumonia, Recurrent Gastrointestinal History: Reports: Chronic Constipation Genitourinary History: Reports: Diabetic Nephropathy Other Genitourinary History: kidney failure 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: Musculoskeletal History: Reports: Amputation, Back Pain, Chronic, Fibromyalgia, Osteoarthritis, RA Other Musculoskeletal History: 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 Neurological History: Reports: Migraines Psychiatric History: Reports: Anxiety, Depression Endocrine/Metabolic History: Reports: Diabetes, Type II Hematologic History: Reports: Other (See Below) - Infectious Disease History Infectious Disease History: Reports: Chicken Pox, Shingles - Past Surgical History Head Surgeries/Procedures: Reports: None HEENT Surgical History: Reports: Adenoidectomy, Tonsillectomy Cardiovascular Surgical History: Reports: None Respiratory Surgical History: Reports: None GI Surgical History: Reports: EGD Female Surgical History: Reports: None Endocrine Surgical History: Reports: None Neurological Surgical History: Reports: None Musculoskeletal Surgical History: Reports: Amputation Social & Family History - Family History Family Medical History: Noncontributory - Caffeine Use Caffeine Use: Reports: Coffee Other Caffeine Use: 2 cups per day, occassionally diet pepsi Caffeine Use Comment: 1-2 cups of coffee - Living Situation & Occupation Living situation: Reports: Single Occupation: Disabled Review of Systems - Review of Systems Review Of Systems: See Below Eyes: Reports: No Symptoms Ears: Reports: No Symptoms Mouth/Throat: Reports: No Symptoms Respiratory: Reports: No Symptoms Cardiovascular: Reports: No Symptoms GI/Abdominal: Denies: Nausea, Vomiting Musculoskeletal: Reports: Other (Full right knee) Skin: Reports: Other (Abrasion right anterior knee) Neurological: Reports: No Symptoms Psychiatric: Reports: No Symptoms ED EXAM, GENERAL - Physical Exam Exam: See Below Exam Limited By: No Limitations General Appearance: Alert, WD/WN, No Apparent Distress Extremities: Other (She has a moderate right knee effusion. She is able to flex the knee to approximately 20 degrees. She has full extension. She has no laxities lateral stressing.) Neurological: Alert, Oriented, Normal Cognition, No Motor/Sensory Deficits Skin Exam: Other (There Is a small abrasion on the anterior right knee) Course - Vital Signs Text/Narrative:: This patient has a sprain and abrasion to the right knee. She was put in a knee immobilizer the next couple days and will ambulate as tolerated. She will remove the knee immobilizer in 2 days if she still has problems she will follow- up with her primary care provider. Her x-ray of the right knee shows no acute fractures or dislocations that I can see. The patient has an abrasion of the right anterior knee and is up-to-date on tetanus. She will watch for signs of secondary infection. To return to the ER as needed. Last Recorded V/S: Last Vital Signs Temp 37.4 C 04/23/20 21:53 Pulse 108 H 04/23/20 21:53 Resp 16 04/23/20 21:53 BP 137/72 04/23/20 21:53 Pulse Ox 91 L 04/23/20 21:53 - Orders/Labs/Meds Orders: Active Orders 24 hr Category Date Time Status Knee 3V Rt [CR] Stat Exams 04/23/20 22:04 Ordered DME for Discharge [COMM] Stat Oth 04/23/20 22:36 Ordered Meds: Medications Discontinued Medications Generic Name Dose Route Start Last Admin Trade Name Freq PRN Reason Stop Dose Admin Acetaminophen 650 mg 04/23/20 22:05 Tylenol PO 04/23/20 22:06 NOW ONE Departure - Departure Time of Disposition: 22:38 Disposition: Home, Self-Care 01 Condition: Good Clinical Impression: Right knee sprain, Sprain of knee - Discharge Information *PRESCRIPTION DRUG MONITORING PROGRAM REVIEWED*: No *COPY OF PRESCRIPTION DRUG MONITORING REPORT IN PATIENT AGUSTO: No Instructions: Knee Sprain, Adult, [id number] Referrals: PCP,None [Primary Care Provider] - Forms: ED Department Discharge Additional Instructions: Remove the knee immobilizer for 2 days and then remove it. Follow-up with your primary care provider if you still have pain and difficulty with stiffness and swelling. Return to the ER if you have increased problems or concerns. Sepsis Event Note (ED) - Focused Exam Vital Signs: Vital Signs Temp Pulse Resp BP Pulse Ox 04/23/20 21:53 37.4 C 108 H 16 137/72 91 L - My Orders Last 24 Hours: My Active Orders 04/23/20 22:04 Knee 3V Rt [CR] Stat 04/23/20 22:36 DME for Discharge [COMM] Stat - Assessment/Plan Last 24 Hours: My Active Orders 04/23/20 22:04 Knee 3V Rt [CR] Stat 04/23/20 22:36 DME for Discharge [COMM] Stat
[2020-04-23 21:54] VITALS: BP 137/72; PULSE 108
[2020-04-23] MEDS ORDERED: Acetaminophen 325 MG Tab PO ONE (22:05)
--- NOTE | 2020-04-24 09:15 | CR ---
Knee 3V Rt CLINICAL HISTORY: Injury FINDINGS: No acute fracture or dislocation is noted. There are no osseous lesions. There is mild joint space narrowing. There is some mild periarticular spurring. Patient has a joint effusion. There is a vertical linear lucency on the lateral image involving the posterior tibial plateau. This is felt to represent superimposition. Impression: Osteophytic change Joint effusion No definite fracture seen
== END 2020-04-23 23:22 | disposition home or self-care (01) ==
LOC: JP.ED 21:25
DX: S83.91XA Sprain of unspecified site of right knee, initial encounter (principal); E78.00 Pure hypercholesterolemia, unspecified; I11.0 Hypertensive heart disease with heart failure; I50.9 Heart failure, unspecified; J44.9 Chronic obstructive pulmonary disease, unspecified; E11.21 Type 2 diabetes mellitus with diabetic nephropathy; M06.9 Rheumatoid arthritis, unspecified; F41.9 Anxiety disorder, unspecified; F32.9 Major depressive disorder, single episode, unspecified; Z79.899 Other long term (current) drug therapy; Z79.4 Long term (current) use of insulin; Z88.1 Allergy status to other antibiotic agents; Z88.3 Allergy status to other anti-infective agents; W19.XXXA Unspecified fall, initial encounter
CPT/HCPCS: 73562; 99283; A9270

== ENCOUNTER 2020-08-03 12:28 | Emergency (ER) | payer MEDICARE, MEDICAID ==
[2020-08-03 12:47] VITALS: BP 121/52; PULSE 68
--- NOTE | 2020-08-03 13:22 | EDM.PDOC ---
ED HPI GENERAL MEDICAL PROBLEM - General Chief Complaint: Lower Extremity Injury/Pain Stated Complaint: little sore on right foot Time Seen by Provider: 08/03/20 13:11 Source of Information: Reports: Patient History Limitations: Reports: No Limitations - History of Present Illness INITIAL COMMENTS - FREE TEXT/NARRATIVE: Presents for evaluation of bluish discoloration on the top of her right little toe. She does not recall any specific injury or overexertion. There is not really pain in the area. She did have a partial excision of the right great toenail by podiatry earlier this week but the great toe feels and looks as she would expect it to. The left foot has no similar symptoms. She states that when her left foot did have a similar color, she ended up with partial amputation of the foot. Onset: Gradual Duration: Day(s): (1) Location: Reports: Lower Extremity, Right Severity: Mild Improves with: Reports: None Worsens with: Reports: None Associated Symptoms: Reports: No Other Symptoms - Related Data Allergies Allergy/AdvReac Type Severity Reaction Status Date / Time acyclovir [From Zovirax] Allergy Hives Verified 08/03/20 12:47 acyclovir sodium Allergy Hives Verified 08/03/20 12:47 [From Zovirax] amoxicillin [Amoxicillin] Allergy Hives Verified 08/03/20 12:47 Home Meds: Home Meds buPROPion HCL [Wellbutrin Xl] 150 mg PO DAILY 08/21/19 [History] Albuterol [Proventil Neb Soln] 2.5 mg .XX QID PRN 09/25/19 [History] DULoxetine HCl [Cymbalta] 30 mg PO DAILY 09/25/19 [History] Ferrous Gluconate 1 tab PO DAILY 09/25/19 [History] Nortriptyline 20 mg PO BEDTIME 09/25/19 [History] atorvaSTATin [Lipitor] 40 mg PO DAILY 09/25/19 [History] carvediloL [Carvedilol] 6.25 mg PO BID 09/25/19 [History] Pregabalin [Lyrica] 50 mg PO BID 12/06/19 [History] Insulin Aspart [NovoLOG] 4 units SUBCUT TID #0 12/08/19 [Rx] Ergocalciferol (Vitamin D2) [Vitamin D2] 50,000 unit PO ASDIRECTED 01/12/20 [History] Furosemide [Lasix] 80 mg PO BID 01/12/20 [History] fentaNYL [Fentanyl] 12 mcg TOP Q72H #1 patch.td72 03/15/20 [Rx] Past Medical History HEENT History: Reports: Impaired Vision Other HEENT History: tooth extractions, broken teeth Cardiovascular History: Reports: High Cholesterol, Hypertension, Other (See Be low) Other Cardiovascular History: CHF Respiratory History: Reports: COPD, Pneumonia, Recurrent Gastrointestinal History: Reports: Chronic Constipation Genitourinary History: Reports: Diabetic Nephropathy Other Genitourinary History: kidney failure 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: Musculoskeletal History: Reports: Amputation, Back Pain, Chronic, Fibromyalgia, Osteoarthritis, RA Other Musculoskeletal History: 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 Neurological History: Reports: Migraines Psychiatric History: Reports: Anxiety, Depression Endocrine/Metabolic History: Reports: Diabetes, Type II Hematologic History: Reports: Other (See Below) - Infectious Disease History Infectious Disease History: Reports: Chicken Pox, Shingles - Past Surgical History Head Surgeries/Procedures: Reports: None HEENT Surgical History: Reports: Adenoidectomy, Tonsillectomy Cardiovascular Surgical History: Reports: None, Pacer Respiratory Surgical History: Reports: None GI Surgical History: Reports: EGD Female Surgical History: Reports: None Endocrine Surgical History: Reports: None Neurological Surgical History: Reports: None Musculoskeletal Surgical History: Reports: Amputation Social & Family History - Family History Family Medical History: No Pertinent Family History - Tobacco Use Tobacco Use Status *Q: Never Tobacco User - Caffeine Use Caffeine Use: Reports: Coffee Other Caffeine Use: 2 cups per day, occassionally diet pepsi Caffeine Use Comment: 1-2 cups of coffee - Living Situation & Occupation Living situation: Reports: Single Occupation: Disabled Review of Systems - Review of Systems Review Of Systems: Comprehensive ROS is negative, except as noted in HPI. ED EXAM, GENERAL - Physical Exam Exam: See Below Free Text/Narrative:: This is a quiet female who does not offer much historical information, i nterviewed in room 2. Exam Limited By: No Limitations General Appearance: No Apparent Distress Respiratory/Chest: No Respiratory Distress Cardiovascular: Regular Rate, Rhythm Extremities: Other (There is ecchymotic coloring over the dorsal aspect of most of the right fifth toe extending across to the fourth toe. There is nothing on the inferior (plantar) surface of the fifth toe. Nothing within the interdigital spaces. Palpation along the toe reveals no particular pain.) Course - Vital Signs Last Recorded V/S: Last Vital Signs Temp 36.2 C 08/03/20 12:53 Pulse 68 08/03/20 12:53 Resp 14 08/03/20 12:53 BP 121/52 L 08/03/20 12:53 Pulse Ox 97 08/03/20 12:53 - Re-Assessments/Exams Free Text/Narrative Re-Assessment/Exam: She does not recall any specific injury to this area but given the appearance of ecchymosis in the region of the 2 toes, will obtain x-rays of that region. 08/03/20 13:23 08/03/20 15:16 X-ray is negative for evidence of new fracture. There was old fracture injury to the fifth toe. She does not recall a specific injury. I do not know if she may have positioned her foot differently during her the recent right great toenail partial excision. I do not see anything alarming today. I recommend cold packs to the painful area, elevation of the foot, continue home pain medication as needed. Departure - Departure Time of Disposition: 14:34 Disposition: Home, Self-Care 01 Condition: Good Clinical Impression: Sprain of toe, fifth, right Qualifiers: Encounter type: initial encounter Qualified Code(s): S93.504A - Unspecified sprain of right lesser toe(s), initial encounter - Discharge Information Instructions: Finger Sprain, Adult, [id number] Referrals: PCP,None [Primary Care Provider] - Forms: ED Department Discharge Additional Instructions: Cold packs to the bruised area 20 minutes off and on. Elevate the toe. Wear shoes or other foot coverings to avoid reinjury. Recheck with primary care if not better in 7 to 10 days. Sepsis Event Note (ED) - Evaluation Sepsis Screening Result: No Definite Risk - Focused Exam Vital Signs: Vital Signs Temp Pulse Resp BP Pulse Ox 08/03/20 12:53 36.2 C 68 14 121/52 L 97 08/03/20 12:46 36.2 C 68 14 121/52 L 97
--- NOTE | 2020-08-03 13:50 | CR ---
Toes Multiple Rt CLINICAL HISTORY: Bruising of fourth and fifth toes FINDINGS: There is deformity of the distal aspects of the fourth and fifth metatarsals. This appears to be from old healed fractures. There is some osteoarthritic change in the interphalangeal joints. IMPRESSION: Old healed fractures of the fourth and fifth metatarsals. Correlate with clinical history. Osteoarthritic changes in the toes
== END 2020-08-03 15:06 | disposition home or self-care (01) ==
LOC: JP.ED 12:28
DX: S93.504A Unspecified sprain of right lesser toe(s), initial encounter (principal); E78.00 Pure hypercholesterolemia, unspecified; I11.0 Hypertensive heart disease with heart failure; I50.9 Heart failure, unspecified; J44.9 Chronic obstructive pulmonary disease, unspecified; E11.21 Type 2 diabetes mellitus with diabetic nephropathy; F41.9 Anxiety disorder, unspecified; F32.9 Major depressive disorder, single episode, unspecified; Z79.899 Other long term (current) drug therapy; Z88.1 Allergy status to other antibiotic agents; Z88.8 Allergy status to other drugs, medicaments and biological substances; Z79.4 Long term (current) use of insulin; X58.XXXA Exposure to other specified factors, initial encounter
CPT/HCPCS: 73660-26-RT; 73660-RT; 99282; 99283